=== PATIENT | female | born 1965 | race Caucasian/White ===

== ENCOUNTER 2016-05-12 12:42 | Emergency (ER) | payer MEDICAID ==
[2016-05-12] MEDS ORDERED: ADENOSINE 6 MG/2 ML VIAL ONE (12:45)
--- NOTE | 2016-05-12 12:50 | CPEKG ---
Heart Rate: 174 RR Interval: 345 QRSD Interval: 84 QT Interval: 260 QTC Interval: 443 P [place]: 0 QRS [place]: 84 T Wave [place]: -67 EKG Severity - ABNORMAL ECG - EKG Impression: SUPRAVENTRICULAR TACHYCARDIA EKG Impression: NONSPECIFIC T ABNORMALITIES, INFERIOR LEADS Electronically Signed By: Stacy Bey 12-May-2016 15:20:09
[2016-05-12] MEDS ORDERED: ADENOSINE 6 MG/2 ML VIAL IVP ONE (13:04)
[2016-05-12] MEDS ORDERED: NS 1,000 ML IV ONE (13:04)
[2016-05-12] MEDS ORDERED: LORazepam 2 MG/ML INJ IVP ONE (13:28)
[2016-05-12 13:35] LABS: % IMMATURE GRANULYOCYTES 0.2 % (0.0-1.1); ABSOLUTE IMMATURE GRANULOCYTES 0.01 10^3/uL (0.00-0.10); ADD DIFF? NO; ADD MORPH? NO; ADD SCAN? NO; ATYPICAL LYMPHOCYTE FLAG 10 (0-99); FRAGMENT RBC FLAG 20 (0-99); HEMOGLOBIN 14.9 g/dL (12.6-16.3); LEFT SHIFT FLG 0 (0-99); LIPEMIA HEMOLYSIS FLAG 90 (0-99); MEAN CELL HEMOGLOBIN 30.6 pg (27.9-34.1); MEAN CELL HEMOGLOBIN CONCENTR. 33.9 g/dL (32.4-36.7); MEAN CELL VOLUME 90.3 fL (81.5-99.8); MEAN PLATELET VOLUME 8.5 fL (8.7-11.7); PLATELET CLUMPS FLAG 0 (0-99); PLATELET COUNT 333 10^3/uL (150-400); RED BLOOD CELL COUNT 4.87 10^6/uL (4.18-5.33); RED CELL DISTRIBUTION WIDTH 13.2 % (11.5-15.2)
[2016-05-12 13:43] LABS: ANION GAP 14 mEq/L (8-16); CALCIUM 9.5 mg/dL (8.5-10.4); CARBON DIOXIDE 23 mEq/l (22-31); CHLORIDE 103 mEq/L (97-110); CREATININE 0.8 mg/dL (0.6-1.0); GLOMERULAR FILTRATION RATE > 60; GLUCOSE 108 mg/dL (70-100); INR 1.97 (0.83-1.16); POTASSIUM 4.1 mEq/L (3.5-5.2); PROTIME(PATIENT) 22.5 SEC (12.0-15.0); SODIUM 140 mEq/L (134-144)
[2016-05-12 13:44] LABS: APTT 34.7 SEC (23.0-38.0)
[2016-05-12 13:55] LABS: TROPONIN I < 0.012 ng/mL (0-0.034)
[2016-05-12 14:23] VITALS: RESP 16
--- NOTE | 2016-05-12 14:26 | EDPHY ---
H & P Stated Complaint: SVT Time Seen by Provider: 05/12/16 13:04 HPI/ROS: CHIEF COMPLAINT: Rapid heart rate HISTORY OF PRESENT ILLNESS: This is a 50-year-old female with a history of SVT status post ablation a few years ago who presents with SVT which began less than an hour prior to her presentation. She was sitting in a meeting at the time that this occurred. She has had intermittent episodes of SVT since her last ablation and is scheduled to meet with Dr. Moreno tomorrow. She has a repeat ablation scheduled at the end of this month. She is currently feeling short of breath and experiencing substernal chest pressure. She has a history of thromboembolic disease and is taking Coumadin. REVIEW OF SYSTEMS: A ten point review of systems was performed and is negative with the exception of the items mentioned in the HPI. Source: Patient Exam Limitations: No limitations - Personal History LMP (Females 10-55): Hysterectomy Current Tetanus/Diphtheria Vaccine: Yes Current Tetanus Diphtheria and Acellular Pertussis (TDAP): Yes Tetanus Vaccine Date: 2008 - Medical/Surgical History Hx Asthma: No Hx Chronic Respiratory Disease: No Hx Diabetes: No Hx Cardiac Disease: Yes Hx Renal Disease: No Hx Cirrhosis: No Hx Alcoholism: Yes Hx HIV/AIDS: No Hx Splenectomy or Spleen Trauma: No Other PMH: PE,DVT'S,HYPOTHYROIDISM, migraines, Hematolyic gene mutation, PTSD, etoh (sober since 2008), SVT. 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 - Physical Exam Exam: General Appearance: Alert. Vital signs reviewed. Blood pressure 150/91, heart rate 170s. Eyes: Pupils equal and round, no conjunctival injection, no discharge. Anicteric. ENT, Mouth: Mucous membranes are moist, no oropharyngeal erythema or edema. Neck: No lymphadenopathy, supple. No JVD. No carotid bruits. Respiratory: Lungs are clear to auscultation; no wheezes, rales, or rhonchi. Cardiovascular: Tachycardic; no murmur, rub, or gallop. Gastrointestinal: Soft and nontender, no masses or organomegaly, bowel sounds normal. Skin: Warm and dry, no rashes on exposed skin, normal color. Back: Nontender to palpation over the thoracolumbar spine. Extremities: No lower extremity edema, no calf tenderness or swelling. Neurological: Alert and oriented. Moving all four extremities easily and equally. Psychiatric: Anxious. Constitutional: Initial Vital Signs Temperature (C) 36.5 C 05/12/16 12:42 Heart Rate 185 H 05/12/16 12:42 Respiratory Rate 20 05/12/16 12:42 Blood Pressure 150/91 H 05/12/16 12:42 O2 Sat (%) 96 05/12/16 12:42 O2 Delivery Mode Room Air O2 (L/minute) 2 Allergies/Adverse Reactions: Shellfish *RETIRED-01/11/12 [Shellfish] Allergy (Unknown, Verified 08/31/14 10: 40) HEADACHE morphine [Morphine] Allergy (Verified 08/31/14 10:40) Itching ondansetron HCl [From Zofran] Allergy (Verified 08/31/14 10:40) bee sting Allergy (Uncoded 08/31/14 10:40) Unknown Home Medications: Medication Instructions Recorded Levothyroxine [Synthroid 88 mcg 88 mcg PO DAILY06 08/15/13 (*)] Warfarin Sodium [Coumadin 5MG (*)] 10 mg PO SUWE@0800 08/15/13 Zolpidem Tartrate [Ambien 5MG (*)] 10 mg PO HS PRN 08/15/13 Flexeril 02/15/16 Medical Decision Making - Diagnostics EKG Interpretation: 12 lead EKG is interpreted in Trace master View by emergency department physician. SVT with a rate in the 170s. 12 lead EKG is interpreted in Trace master View by emergency department physician. Normal sinus rhythm with a rate in 80s. ED Course/Re-evaluation: 50-year-old female with a history of SVT who presents with SVT in the 170s. She received adenosine 12 mg IV with decrease in her heart rate from the 170s to 110-120. While in the emergency department she converted to a sinus rhythm with a rate in the 80s. I have reviewed her labs including CBC, chemistries, troponin, INR, and TSH. Her INR is just under 2. I have spoken with Elle Sharma from [facility]. She was observed for over an hour after she converted to normal sinus rhythm. I feel that she can safely be discharged home to follow up tomorrow with Dr. Moreno as planned. Differential Diagnosis: DDX of tachycardia was considered including but not limited to SVT/primary rhythm disturbance, afib/flutter, dehydration, volume loss/bleeding, fever, thyroid disturbance. - Data Points Laboratory Results: Laboratory Results 05/12/16 12:52 05/12/16 12:52 Medications Given: Discontinued Medications Adenosine (Adenosine) 12 mg IVP EDNOW ONE Stop: 05/12/16 13:05 Last Admin: 05/12/16 12:59 Dose: 12 mg Sodium Chloride (Ns) 1,000 mls @ 0 mls/hr IV EDNOW ONE PRN Reason: Wide Open Stop: 05/12/16 13:05 Last Admin: 05/12/16 12:58 Dose: 1,000 mls Lorazepam (Ativan Injection) 1 mg IVP EDNOW ONE Stop: 05/12/16 13:29 Last Admin: 05/12/16 13:32 Dose: 1 mg Departure - Departure Disposition: Home, Routine, Self-Care Clinical Impression: Supraventricular tachycardia Condition: Good Instructions: Supraventricular Tachycardia (ED) Referrals: Adriana Sandoval PA [Primary Care Provider] - As per Instructions Erlin Moreno MD [Medical Doctor] - As per Instructions
--- NOTE | 2016-05-12 15:03 | CPEKG ---
Heart Rate: 85 RR Interval: 706 P-R Interval: 152 QRSD Interval: 90 QT Interval: 372 QTC Interval: 443 P [place]: 51 QRS [place]: 87 T Wave [place]: 40 EKG Severity - OTHERWISE NORMAL ECG - EKG Impression: SINUS RHYTHM EKG Impression: LOW VOLTAGE IN FRONTAL LEADS Electronically Signed By: Stacy Bey 12-May-2016 15:20:00
[2016-05-12 16:07] VITALS: BP 122/78; PULSE 89; TEMP 97.5; O2SAT 96
== END 2016-05-12 16:08 | disposition home or self-care (01) ==
DX: I47.1 Supraventricular tachycardia (principal); F17.200 Nicotine dependence, unspecified, uncomplicated; Z79.01 Long term (current) use of anticoagulants
CPT/HCPCS: 96374; J0153

== ENCOUNTER 2016-05-25 06:56 | Observation (INO) | payer MEDICAID ==
[2016-05-25] MEDS ORDERED: NS 1,000 ML IV ONE (07:01)
--- NOTE | 2016-05-25 07:34 | CPEKG ---
Heart Rate: 79 RR Interval: 759 P-R Interval: 156 QRSD Interval: 90 QT Interval: 424 QTC Interval: 487 P [place]: 67 QRS [place]: 79 T Wave [place]: 62 EKG Severity - BORDERLINE ECG - EKG Impression: SINUS RHYTHM EKG Impression: VENTRICULAR PREMATURE COMPLEX EKG Impression: BORDERLINE T ABNORMALITIES, ANT-LAT LEADS EKG Impression: BORDERLINE PROLONGED QT INTERVAL Electronically Signed By: Raj Christianson 25-May-2016 10:07:00
[2016-05-25 07:49] LABS: % IMMATURE GRANULYOCYTES 0.2 % (0.0-1.1); ABSOLUTE IMMATURE GRANULOCYTES 0.01 10^3/uL (0.00-0.10); ADD DIFF? NO; ADD MORPH? NO; ADD SCAN? NO; ATYPICAL LYMPHOCYTE FLAG 0 (0-99); FRAGMENT RBC FLAG 0 (0-99); HEMATOCRIT 37.6 % (38.0-47.0); LEFT SHIFT FLG 0 (0-99); LIPEMIA HEMOLYSIS FLAG 90 (0-99); MEAN CELL HEMOGLOBIN 31.7 pg (27.9-34.1); MEAN CELL HEMOGLOBIN CONCENTR. 34.6 g/dL (32.4-36.7); MEAN CELL VOLUME 91.7 fL (81.5-99.8); MEAN PLATELET VOLUME 8.7 fL (8.7-11.7); PLATELET CLUMPS FLAG 0 (0-99); PLATELET COUNT 215 10^3/uL (150-400); RED CELL DISTRIBUTION WIDTH 12.7 % (11.5-15.2)
[2016-05-25 07:57] LABS: INR 1.02 (0.83-1.16); PROTIME(PATIENT) 13.3 SEC (12.0-15.0)
[2016-05-25 08:13] LABS: ANION GAP 11 mEq/L (8-16); CALCIUM 9.1 mg/dL (8.5-10.4); CARBON DIOXIDE 24 mEq/l (22-31); CHLORIDE 108 mEq/L (97-110); CREATININE 0.7 mg/dL (0.6-1.0); GLOMERULAR FILTRATION RATE > 60; GLUCOSE 122 mg/dL (70-100); MAGNESIUM 1.9 mg/dL (1.6-2.3); SODIUM 143 mEq/L (134-144)
[2016-05-25] MEDS ORDERED: HEPARIN 10,000 UNIT/10 ML MDV ONE ×2 (08:19→09:57)
[2016-05-25] MEDS ORDERED: ISOPROTERENOL HCL 0.2 MG/ML 5ML AMP ONE (08:19)
[2016-05-25] MEDS ORDERED: LIDOCAINE 1% 30 ML SDV ONE (08:19)
[2016-05-25] MEDS ORDERED: BUPIVACAINE 0.5% 30 ML SDV ONE (08:20)
[2016-05-25] MEDS ORDERED: fentaNYL 100 MCG/2 ML INJ ONE ×3 (08:25→14:09)
[2016-05-25] MEDS ORDERED: SCOPOLAMINE HYDROBROMIDE 1.5 MG PATCH TD ONE (08:25)
[2016-05-25] MEDS ORDERED: PROPOFOL/EMULSION 500 MG/50 ML BOTTLE IV ONE ×4 (08:26→11:03)
[2016-05-25] MEDS ORDERED: PROPOFOL 200 MG/20 ML VIAL ONE (08:26)
[2016-05-25] MEDS ORDERED: MIDAZOLAM 2 MG/2 ML VIAL ONE (08:31)
[2016-05-25] MEDS ORDERED: DEXAMETHASONE 4 MG/ML VIAL ONE (08:41)
[2016-05-25] MEDS ORDERED: ONDANSETRON 4 MG/2 ML VIAL ONE (08:41)
[2016-05-25] MEDS ORDERED: ROCURONIUM 50 MG/5 ML VIAL ONE ×3 (08:41→10:45)
[2016-05-25] MEDS ORDERED: SUGAMMADEX SODIUM 200 MG/2 ML VIAL IVP ONE (10:01)
[2016-05-25] MEDS ORDERED: PHENYLEPHRINE HCL 100 MCG/ML SYR ONE (10:34)
[2016-05-25 11:58] LABS: HEMATOCRIT 33.5 % (38.0-47.0); HEMOGLOBIN 11.2 g/dL (12.6-16.3); PCO2 VENOUS 48 mmHg (40-44); PH VENOUS BLOOD 7.29 (7.31-7.42); PO2 VENOUS 51 mmHg (35-40); TCO2 VENOUS 24 mEq/L (23-27); VEN MEASURED OXYGEN SATURATION 80 % (65-75)
[2016-05-25 12:15] LABS: ANION GAP 7 mEq/L (8-16); CARBON DIOXIDE 24 mEq/l (22-31); CHLORIDE 111 mEq/L (97-110); CREATININE 0.7 mg/dL (0.6-1.0); GLOMERULAR FILTRATION RATE > 60; GLUCOSE 158 mg/dL (70-100); POTASSIUM 4.3 mEq/L (3.5-5.2); SODIUM 142 mEq/L (134-144)
[2016-05-25] MEDS ORDERED: ACETAMINOPHEN 325 MG TAB PO PRN (12:29)
[2016-05-25] MEDS ORDERED: ZOLPIDEM TARTRATE 5 MG TAB PO PRN (12:31)
[2016-05-25] MEDS ORDERED: IBUPROFEN 200 MG TAB PO PRN (12:31)
[2016-05-25] MEDS ORDERED: CYCLOBENZAPRINE 10 MG TAB PO PRN (12:31)
[2016-05-25 12:42] LABS: CALCIUM 7.8 mg/dL (8.5-10.4)
[2016-05-25 13:11] LABS: ANION GAP 6 mEq/L (8-16); CARBON DIOXIDE 24 mEq/l (22-31); CHLORIDE 111 mEq/L (97-110); CREATININE 0.8 mg/dL (0.6-1.0); GLOMERULAR FILTRATION RATE > 60; GLUCOSE 169 mg/dL (70-100); MAGNESIUM 1.7 mg/dL (1.6-2.3); POTASSIUM 4.4 mEq/L (3.5-5.2); SODIUM 141 mEq/L (134-144)
--- NOTE | 2016-05-25 13:17 | EPPROC ---
Electrophysiology Procedure Note: ELECTROPHYSIOLOGIC STUDY AND CATHETER MEDIATED ABLATION OF SLOW/FAST AV GABINO REENTRY TACHYCARDIA AND ATRIAL FLUTTER PROCEDURES PERFORMED: 65627-13 EP evaluation with RA/RV/LA pace/record, with arrhythmia induction 25790-95 EP evaluation with RA/RV pace record, insert/reposition catheter, with arrhythmia induction 67541 Intracardiac catheter ablation, SVT arrhythmogenic focus Second arrhythmia 49405 3D mapping Fluoroscopy INDICATION: Prior ablation for SVT and atrial flutter at our institution Recurrent SVT requiring adenosine PROCEDURE: Catheters & Anesthesia: The patient arrived in the Electrophysiology Laboratory in the fasting state. The right clavicular region, right groin, and left groin area were prepped and draped in the usual sterile manner. Anesthesiologist administered general anesthesia. Appropriate non-invasive blood pressure, pulse oximetry and end- tidal CO2 monitoring was established. All catheters were placed percutaneously using the modified Seldinger technique , and advanced into position under fluoroscopic guidance. One Halo catheter was placed along tricuspid annulus. One #7 Lithuanian deflectable octapolar electrode catheter was advanced to the His-bundle position via the left femoral vein (2mm spacing). One #7 Lithuanian deflectable catheter with 10 pairs of electrodes was placed via the right femoral vein into the coronary sinus. Heparin was given to keep ACT > 250 s. There was return of conduction across the CT isthmus. SL2 sheath and irrigated RF ablation catheter with 3D mapping capability ([employer] ) was placed in the right atrium. Ablation at the RA-IVC junction achieved conduction block across CT isthmus. Programmed stimulation was performed from the right atrium, right ventricle and coronary sinus (left atrium). Parahisian pacing demonstrated constant H-A interval with changing V-A intervals and stimulus-A intervals during capture and loss of capture of proximal RBB proving retrograde conduction over AV node. AVNRT was induced easily during infusion of isoproterenol 1 mcg/min. Ventricular extrastimuli delivered during tachycardia without altering antegrade His bundle activation did not advance next atrial potential, indicating that the tachycardia was not utilizing an accessory pathway for retrograde conduction. VA interval was 0 ms. SVT started with long AH interval A SL2 sheath was used. We placed 6 mm cryo catheter into the RA to ablate the slow AV gabino pathway but due to technical difficulties with the cryo console we had to change this back to 3.5 mm irrigated tip catheter. RF applications were delivered to the region between the tricuspid annulus and the coronary sinus ostium, at the level of the upper edge of the coronary sinus ostium. Radiofrequency applications were also delivered along the roof of the proximal coronary sinus. Junctional rhythm occurred during the last 3 of the RF applications. Echocardiogram was done during case due to hypotension, there was no pericardial effusion and wall motion of LV was normal. Hypotension resolved with decreasing propofol dose. Programmed stimulation was continued post ablation at baseline and during graded doses of isoproterenol upto 4mcg/min. Sustained AVNRT was not inducible. There were single echo beats. The catheters were removed. The long sheath was changed to a short 9 Fr sheath. The patient was transferred to the cardiovascular holding area in stable condition. Vascular access sheaths were removed in the holding area. There were no apparent complications. Results: A. Spontaneous Intervals: Pre ablation SCL 730 ms AH 55 ms 50 ms Post ablation SCL 650 ms AH 50 ms HV 50 ms B. Antegrade AV gabino function (decremental pacing) Pre ablation FPERP 470 ms SPERP 450 ms WBB CL 440 ms (AH jump from 150 ms to 280 ms at FPERP) Post ablation FPERP 470 ms WBB 460 ms C. Retrograde AV gabino function (decremental pacing) Pre ablation FPERP 360 ms WBB CL 350 ms D. Arrhythmias: Sustained slow/fast AVNRT CONCLUSIONS 1. AV gabino reentrant tachycardia using the slow AV gabino pathway for antegrade conduction and the fast AV gabino pathway for retrograde conduction. ( Slow/fast AVNRT). 2. Successful ablation of the slow AV gabino pathway with elimination of 1:1 antegrade conduction over the slow AV gabino pathway, all retrograde conduction over the slow AV gabino pathway and the inducibility of AVNRT. 3. Bidirectional block across cavotricuspid isthmus achieved by ablating at IVC-RA junction of CT isthmus. 4. No complications. Patient Problems: Problems Problem Status Diagnosed Hypoxemia Acute Supraventricular tachycardia Acute
[2016-05-25] MEDS ORDERED: fentaNYL 100 MCG/2 ML INJ IVP PRN (14:21)
[2016-05-25] MEDS ORDERED: LORazepam 2 MG/ML INJ IVP PRN (17:44)
[2016-05-25] MEDS ORDERED: PROMETHAZINE HCL 25 MG/ML INJ IVP PRN (17:45)
[2016-05-25] MEDS: OXYCODONE/APAP 5/325 TAB PO PRN (18:11)
[2016-05-25] MEDS: ENOXAPARIN 80 MG/0.8 ML SYR SC SCH (19:52)
[2016-05-26] MEDS: OXYCODONE/APAP 5/325 TAB PO PRN ×2 (03:52→12:13)
[2016-05-26] MEDS ORDERED: LEVOTHYROXINE 50 MCG TAB PO SCH (06:00)
[2016-05-26 06:17] LABS: % IMMATURE GRANULYOCYTES 0.3 % (0.0-1.1); ABSOLUTE IMMATURE GRANULOCYTES 0.02 10^3/uL (0.00-0.10); ADD DIFF? NO; ADD MORPH? NO; ADD SCAN? NO; ATYPICAL LYMPHOCYTE FLAG 10 (0-99); FRAGMENT RBC FLAG 0 (0-99); HEMATOCRIT 34.4 % (38.0-47.0); HEMOGLOBIN 11.7 g/dL (12.6-16.3); LEFT SHIFT FLG 0 (0-99); LIPEMIA HEMOLYSIS FLAG 90 (0-99); MEAN CELL HEMOGLOBIN 31.4 pg (27.9-34.1); MEAN CELL VOLUME 92.2 fL (81.5-99.8); MEAN PLATELET VOLUME 8.9 fL (8.7-11.7); PLATELET CLUMPS FLAG 20 (0-99); PLATELET COUNT 179 10^3/uL (150-400); RED BLOOD CELL COUNT 3.73 10^6/uL (4.18-5.33); RED CELL DISTRIBUTION WIDTH 12.9 % (11.5-15.2)
[2016-05-26 06:53] LABS: ANION GAP 8 mEq/L (8-16); CARBON DIOXIDE 25 mEq/l (22-31); CHLORIDE 108 mEq/L (97-110); CREATININE 0.7 mg/dL (0.6-1.0); GLOMERULAR FILTRATION RATE > 60; GLUCOSE 91 mg/dL (70-100); POTASSIUM 4.2 mEq/L (3.5-5.2); SODIUM 141 mEq/L (134-144)
[2016-05-26 07:05] LABS: CREATINE KINASE-MB FRACTION 1.23 ng/mL (0-3.19); TROPONIN I 0.112 ng/mL (0-0.034)
[2016-05-26] MEDS: ENOXAPARIN 80 MG/0.8 ML SYR SC SCH (08:33)
--- NOTE | 2016-05-26 08:56 | CPEKG ---
Heart Rate: 69 RR Interval: 870 P-R Interval: 136 QRSD Interval: 90 QT Interval: 400 QTC Interval: 429 P [place]: 46 QRS [place]: 79 T Wave [place]: 31 EKG Severity - BORDERLINE ECG - EKG Impression: SINUS RHYTHM EKG Impression: LOW VOLTAGE THROUGHOUT Electronically Signed By: Carlitos Fernandes 27-May-2016 08:26:13
[2016-05-26] MEDS ORDERED: WARFARIN SODIUM 5 MG TAB PO SCH (09:00)
[2016-05-26] MEDS ORDERED: METOPROLOL SUCCINATE XR 25 MG TAB PO SCH (09:00)
[2016-05-26] MEDS ORDERED: ASPIRIN 81 MG CHEWABLE TAB PO SCH (09:00)
[2016-05-26] MEDS ORDERED: KETOROLAC 15 MG/1 ML SDV IVP ONE ×2 (09:29→11:00)
--- NOTE | 2016-05-26 10:24 | ECHO ---
[id number] + + [address] : : [place] [address] : : [phone] + + Adult Echocardiographic Report + -----+ :Name: JOVANNI العراقي Date: 05/26/2016 07:57 AM BP: 95/66 mmHg : : Hospital Admission Number: [id number] Location : 206: :: 1965 Gender: Female Height: 66 in : :Age: 50 yrs Race: WH,White Weight: 171 lb : :Reason For Study: F/U EP study : : BSA: 1.9 meters2 : :History: F/U EP study : + -----+ MMode/2D Measurements & Calculations IVSd: 0.60 cm RVDd: 2.4 cm FS: 27.9 % Ao root diam: LVPWd: 0.77 cm LVIDd: 4.4 cm EDV(Teich): 3.0 cm LVIDs: 3.2 cm 89.3 ml ESV(Teich): 40.9 ml EF(Teich): 54.2 % LVLd ap4: 8.6 cm SV(MOD-sp4): EDV(MOD-sp4): 76.0 ml 104.0 ml LVLs ap4: 6.1 cm ESV(MOD-sp4): 28.0 ml EF(MOD-sp4): 73.1 % Normal Measurement Values: + + :LVIDd (3.5-5.7cm) IVSd (0.6-1.1cm) LVPWd (0.6-1.1cm) Aortic Root (2.0-3.7cm)Left Atrium (1.5-4.0cm): :LV Vol(d) (76-115ml) LV Vol(s) (29-48ml) Ejec Fraction (50-65%)PV Nathanael (0.6- 1.2m/s) TV Nathanael (0.4-1.0m/s) : :MV E Nathanael (0.8-1.0m/s)MV A Nathanael (0.3-1.0m/s)LVOT Nathanael (0.7-1.2m/s) Asc Ao Nathanael ( 0.9-1.8m/s) : + + Doppler Measurements & Calculations MV E max nathanael: Ao V2 max: LV V1 max: PA V2 max: 90.8 cm/sec 117.1 cm/sec 81.4 cm/sec 82.8 cm/sec MV A max nathanael: Ao max P.5 mmHgLV V1 max PG: PA max P.3 cm/sec 2.6 mmHg 2.7 mmHg MV E/A: 1.6 MV dec time: 0.19 sec TR max nathanael: 226.7 cm/sec TR max P.6 mmHg RAP systole: 10.0 mmHg RVSP(TR): 30.6 mmHg Left Ventricle The left ventricle is normal in size and function. There is normal left ventricular wall thickness. Ejection Fraction = 65%. No regional wall motion abnormalities noted. Right Ventricle The right ventricle is normal in size and function. Atria The left atrial size is normal. Right atrial size is normal. There was no clot seen in the IVC. A dilated inferior vena cava suggests increased right atrial pressure. Mitral Valve The mitral valve is normal in structure and function. There is no mitral valve stenosis. There is trace to mild mitral regurgitation. Tricuspid Valve The tricuspid valve is normal in structure and function. There is no tricuspid stenosis. There is trace to mild tricuspid regurgitation. Right ventricular systolic pressure is 31mmHg. Aortic Valve The aortic valve is trileaflet. There is no aortic stenosis. There is no aortic insufficiency. Pulmonic Valve The pulmonic valve is not well visualized. Great Vessels The aortic root is normal size. Pericardium/Pleural trivial pericardial effusion. Conclusion A two-dimensional transthoracic echocardiogram with M-mode and Doppler was performed. The left ventricle is normal in size and function. Ejection Fraction = 65%. There was no clot seen in the IVC. There is trace to mild mitral regurgitation. There is trace to mild tricuspid regurgitation. Right ventricular systolic pressure is 31mmHg. trivial pericardial effusion. Final Reading Physician: Erlin Moreno MD electronically signed on 05/26/2016 10:22 AM Ordering Physician: Erlin Moreno Performed By: Geri Sharif
[2016-05-26] MEDS ORDERED: PNEUMOCOCCAL 0.5ML VACCINE VIAL IM ONE (10:56)
[2016-05-26 11:44] VITALS: BP 111/62; PULSE 73; RESP 15; TEMP 98.8; O2SAT 91
--- NOTE | 2016-05-27 00:26 | GDS ---
[f rep st] DISCHARGE SUMMARY ADMISSION DIAGNOSES: 1. Supraventricular tachycardia and near syncope. 2. 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 3. Hypothyroidism. 4. History of pulmonary embolism. 5. Thromboembolic disease. 6. Previous alcohol use. DISCHARGE DIAGNOSES: 1. Supraventricular tachycardia status post re-do electrophysiology study with successful ablation o f slow atrioventricular stephanie pathway for to eliminate atrioventricular stephanie reentrant tachycardia. 2. History of atrial flutter status post ablation. 3. History of pulmonary embolisms. 4. Thromboembolic disease. 5. Previous alcohol abuse. PROCEDURES DONE DURING HOSPITALIZATION: 1. Electrocardiogram. 2. Electrophysiology study. 3. Successful ablation of slow AV stephanie pathway, which eliminated one-to-one antegrade conduction ov er the slow AV stephanie pathway, which eliminated AVNRT. 4. Echocardiogram. BRIEF HISTORY: Please see H and P. The patient is a 50-year-old female with significant history of previous AVNRT and atrial flutter ablation in 2013, hypothyroidism, history of pulmonary embolisms an d thrombotic disease on chronic warfarin therapy, with previous alcohol abuse. She initially was see n in March, when status post an episode of dizziness and lightheadedness, she went to the emergenc y department, found to be in a supraventricular tachycardia, requiring multiple doses of adenosine to convert her back. At that time, she had been started on beta-luis, with the idea of a trial of m edication therapy. She had been doing fairly well until the beginning of May, when she experienc ed another episode of SVT with rates up to 174 BPM, requiring again adenosine to convert her, despite being on beta luis. At that time, it was decided by Dr. Moreno and the patient that she should unde rgo another EP procedure. After discussing the risks and benefits, patient agreed. HOSPITAL COURSE: Patient was admitted to the hospital, to the [facility]. There she was prep for procedure and taken to the electrophysiology lab, where EP procedure was performed, followed by AVNRT ablation , no complications. She was transferred back to the CVC and ultimately to PCU for overnight observat ion. There she remained in sinus rhythm. She did report some mild substernal chest pressure post ab lation, which improved with narcotics, and was given 2 doses of Toradol, reporting symptoms mostly donohue d subsided. She had no bleeding issues throughout the night. She has been up in walking the unit wi thout any difficulties. Denies of any shortness of breath, palpitations, near-syncope or syncopal ev ents. PHYSICAL EXAMINATION: Today, GENERAL APPEARANCE: Medium build, well-groomed, female. She is alert and orientated to person, place, time, and situation. Appears to be under no acute distres s. VITAL SIGNS: Currently are blood pressure 111/62. Heart rate is 73, sinus rhythm on the monitor . Respirations 15, saturating 92% on room air. Temperature 37.1 degrees Celsius. HEENT: Head is n ormocephalic. Lips and tongue are pink and moist with no signs of cyanosis. Conjunctivae pink. NEC K: Trachea is midline. +2 carotid pulses bilateral, no auscultated bruits, no jugular vein distenti on. RESPIRATORY: Lungs clear to auscultation. No rhonchi, rales, or wheezes. No accessory muscle use. No intercostal muscle retraction noted. CARDIAC: Regular rate, regular rhythm, S1, S2. No S3 , rub, gallop, or murmur noted. ABDOMEN: Soft, nontender. Bowel sounds x4 quadrants. No organomeg eloy. No palpable masses. SKIN: [place], warm, dry, no cyanosis, no clubbing, no peripheral edema. VA SCULAR: +2 radials bilateral, +2 carotids bilateral, +1 dorsal pedal and posterior tibial pulses emily ateral. GROIN SITE: Catheter insertion sites, bilateral. No redness, swelling, drainage, ecchymosis, or hem atoma noted. No auscultated bruit over either site. NEURO: Cranial nerves 2 through 12 grossly int act. LABORATORY STUDIES: Showed WBC 7.47, hemoglobin 11.7, hematocrit of 34.4, platelet count 179. Sodiu m 141, potassium 4.2, chloride 108, CO2 25, BUN 16, creatinine 0.7, glucose 91, calcium 9.0, noted po stoperatively magnesium was 1.0. This morning laboratories for cardiac enzymes showed CK of 89, CK-M B of 1.23, troponin of 0.112, which was expected to be elevated post cardiac ablation. Electrophysiology study with ablation as mentioned above. Morning echocardiogram showed LV normal si ze and function with EF of 65%, no clot in the IVC, trace to mild MR, trace to mild TR, RVSP was tesfaye mated at 31 mmHg, trivial pericardial effusion. A.m. electrocardiogram shows sinus rhythm, normal axis. DISCHARGE DISPOSITION: Patient will be discharged home in fair condition. She is under activity res trictions of not lifting more than 10 pounds for the next week and no strenuous activity for the next 2 weeks. DISCHARGE MEDICATIONS: Please see discharge med reconciliation sheet. Note patient is on chronic wa rfarin therapy due to her history of thrombotic events and pulmonary embolisms. She had been bridge prior to this procedure after she came off warfarin, she has been reinstituted on warfarin last night , and will be bridged with Lovenox 80 mg subcu every 12 hours. Would like her to have a repeat INR d one on of this week, depending on the results, if she is therapeutic, will discontinue Loven ox and continue on home dose of warfarin. Patient also reporting mild midsternal chest pressure, whi ch resolved with Toradol, potentially this is mild pericarditis due to recent ablation, would like he r to continue on nonsteroidal anti-inflammatories, she will be on ibuprofen 400 mg every 8 hours for the next 3 days. Due to this and being on warfarin, we will also ask her to take Prilosec 20 mg p.o. daily for the next 1-2 weeks. DISCHARGE INSTRUCTIONS: Post ablation discharge instructions gone over with the patient including ac tivity restrictions, medication compliance, monitoring for signs of infection, and bleeding precautio ns at the time. We also discussed her bridging therapy. She is in full agreement and understands th at she is to have an INR drawn on . She will continue Lovenox every 12 hours, and continue o n her home dose of warfarin. All potential side effects of medication, and patient also agrees, unde rstands taking ibuprofen every 8 hours, and the Prilosec. At the time of discharge, patient verbaliz es understanding all discharge instructions. She has been told that if she has any problems or ty rns post discharge, she is to call our office or return to the hospital immediately. Patient has a ganesh swartz appointment in 1 months' time, sooner if necessary. Total time spent on discharge, greater t garcia 30 minutes. /[id number]/MODL
== END 2016-05-26 13:30 | disposition home or self-care (01) ==
LOC: FCATH 06:56 → F2W 12:29
PROVIDERS: ADMIT Internal Medicine Cardiovascular Disease; ATTEND Internal Medicine Cardiovascular Disease
PROC: 02563ZZ Destruction of Right Atrium, Percutaneous Approach (ICD-10-PCS; principal; 2016-05-25)
DX: I47.1 Supraventricular tachycardia (principal); E03.9 Hypothyroidism, unspecified; Z86.711 Personal history of pulmonary embolism
CPT/HCPCS: 90471; 93005; 93306; 93613; 93621; 93623; 93653; 93655; C1731; C1732; C1733; C1893; G0009; J0171; J1100; J1644; J1650; J1885; J2250; J2370; J2405; J2550; J2704; J3010

== ENCOUNTER 2016-05-31 12:17 | Emergency (ER) | payer MEDICAID ==
--- NOTE | 2016-05-31 12:52 | CPEKG ---
Heart Rate: 63 RR Interval: 952 P-R Interval: 152 QRSD Interval: 90 QT Interval: 408 QTC Interval: 418 P [place]: -15 QRS [place]: 76 T Wave [place]: 20 EKG Severity - OTHERWISE NORMAL ECG - EKG Impression: SINUS RHYTHM EKG Impression: LOW VOLTAGE IN FRONTAL LEADS Electronically Signed By: Martir Donato 31-May-2016 15:04:56
--- NOTE | 2016-05-31 13:12 | EDPHY ---
H & P Stated Complaint: c/o headache x 4-5 days;on blood thinners - Personal History LMP (Females 10-55): Post Menopausal Current Tetanus Diphtheria and Acellular Pertussis (TDAP): Yes Tetanus Vaccine Date: 2008 - Medical/Surgical History Hx Asthma: No Hx Chronic Respiratory Disease: No Hx Diabetes: No Hx Cardiac Disease: Yes Hx Renal Disease: No Hx Cirrhosis: No Hx Alcoholism: Yes Hx HIV/AIDS: No Hx Splenectomy or Spleen Trauma: No Other PMH: PE,DVT'S,HYPOTHYROIDISM, migraines, Hematolyic gene mutation, PTSD, etoh (sober since 2008), SVT. SURG: Hysterectomy, spinal fusion c4-6, right toe surgery, breast biopsy, tubal ligation, ablation for SVT - Social History Smoking Status: Current every day smoker Time Seen by Provider: 05/31/16 12:46 Constitutional: Initial Vital Signs Temperature (C) 36.7 C 05/31/16 12:19 Heart Rate 69 05/31/16 12:19 Respiratory Rate 18 05/31/16 12:19 Blood Pressure 121/78 H 05/31/16 12:19 O2 Sat (%) 95 05/31/16 12:19 O2 Delivery Mode Room Air Allergies/Adverse Reactions: Shellfish *RETIRED-01/11/12 [Shellfish] Allergy (Unknown, Verified 05/31/16 12: 18) HEADACHE morphine [Morphine] Allergy (Verified 05/31/16 12:18) Itching ondansetron HCl [From Zofran] Allergy (Verified 05/31/16 12:18) bee sting Allergy (Uncoded 08/31/14 10:40) Unknown Home Medications: Medication Instructions Recorded Warfarin Sodium [Coumadin 5MG (*)] 10 mg PO DAILY 08/15/13 Zolpidem Tartrate [Ambien 5MG (*)] 10 mg PO HS PRN 08/15/13 Enoxaparin [Lovenox 80 MG (*)] 80 mg SQ BID 05/25/16 Levothyroxine [Synthroid 50 mcg 50 mcg PO DAILY06 05/25/16 (*)] Metoprolol Succinate Xr [Toprol Xl 25 mg PO DAILY 05/25/16 25 mg (*)] Acetaminophen [Tylenol 325mg (*)] 325 - 650 mg PO Q4HRS PRN #0 tab 05/26/16 Aspirin [Aspirin 81mg (*)] 81 mg PO DAILY #0 tab.chew 05/26/16 Ibuprofen 400 mg PO Q8HRS #9 tablet 05/26/16 Omeprazole Magnesium [Prilosec Otc] 20 mg PO DAILY #0 tablet.dr 05/26/16 Apixaban [Eliquis] 2.5 mg PO BID #60 tablet 05/31/16 Meloxicam [Mobic 7.5 mg] 7.5 mg PO 05/31/16 Metoclopramide [Reglan 10 mg tab 10 mg PO BID PRN #10 tab 05/31/16 (RX)] Medical Decision Making ED Course/Re-evaluation: CHIEF COMPLAINT: Headache, recent ablation HISTORY OF PRESENT ILLNESS: The patient is an anticoagulated 50 y/o female, with a history of SVT status post-ablation, complaining of a frontal "pounding" headache since night, 4 days ago. Her most recent INR was subtherapeutic and she has been increasing her Coumadin dose over the last few days in addition to her Lovenox. Her headache is not alleviated by ibuprofen. It does not feel similar to previous migraines, which usually have visual symptoms and vomiting. REVIEW OF SYSTEMS: A 10 point review of systems was performed and is negative with the exception of the elements mentioned in the history of present illness. PHYSICAL EXAM: General Appearance: Alert, well hydrated, appropriate, and non-toxic appearing. Head: Atraumatic without scalp tenderness or obvious injury Eyes: Pupils equal, round, reactive to light and accommodation, EOMI, no trauma , no injection. Ears: Clear bilaterally, no perforation, normal landmarks Nose: Atraumatic, no rhinorrhea, clear. Throat: There is no erythema or exudates, no lesions, normal tonsils, mucus membranes moist. Neck: Supple, 2+ carotid upstroke, non-tender, no lymphadenopathy. Respiratory: No retractions, no distress, no wheezes, and no accessory muscle use. Lungs are clear to auscultation bilaterally. Cardiovascular: Regular rate and rhythm, no murmurs, rubs, or gallops. Bilateral carotid, radial, dorsalis pedis, and posterior tibial pulses intact. Good capillary refill all extremities. Gastrointestinal: Abdomen is soft, non-tender, non-distended, no masses, no rebound, no guarding, no peritoneal signs. Musculoskeletal: Normal active ROM of all extremities, atraumatic. Neurological: Alert, appropriate, and interactive. The patient has normal DTRs and non-focal cranial nerves, motor, sensory, and cerebellar exam. Skin: No rashes, good turgor, no nodules on palpation. 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 Moreno DIAGNOSTICS/PROCEDURES/CRITICAL CARE TIME: Study: CT of the Head Indication: Headache Results: CT scan of the head was obtained. The results of the study are . The study was read by the radiologist, . I viewed the images myself on the PACS system. DIFFERENTIAL DIAGNOSIS: The differential diagnosis for the patient's headache included but was not limited to subarachnoid hemorrhage, migraine headache, tension headache and infectious causes such as meningitis, pharyngitis and sinusitis. MEDICAL DECISION MAKING: This is a 50 y/o female, with a history of genetic clotting disorder and recent ablation for SVT, presenting with a 4-day history of a frontal headache, dissimilar to previous migraines. Exam is unremarkable. Plan for head CT to rule out acute process. The patient reports she is out of Lovenox injection sites after 30 injections and is still not therapeutic on her Coumadin. We will discontinue her Lovenox and Coumadin and place her on an oral factor Xa inhibitor. She will be discharged with script for 2.5mg BID Eliquis for clot prophylaxis. She understands she needs to follow up with her PCP to establish fpc use of this medication. Specific return precautions given. She is comfortable with this plan. (Martir Donato) Other Provider: I assumed patient care from Dr. Martir Donato pending MRI. I received MRI report from Radiology. I discussed it with Dr. John Sharma from Neurology and he review the images. 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 It is okay for her to continue taking blood thinners. I discussed these things with the patient and will refer her to Neurosurgery. She understands and agrees. her headache is resolved. ( Emeterio Castellano) - Data Points Laboratory Results: Laboratory Results 05/31/16 12:30 05/31/16 12:30 05/31/16 12:30 WBC 5.87 10^3/uL (3.80-9.50) RBC 4.60 10^6/uL (4.18-5.33) Hgb 14.4 g/dL (12.6-16.3) Hct 42.9 % (38.0-47.0) MCV 93.3 fL (81.5-99.8) MCH 31.3 pg (27.9-34.1) MCHC 33.6 g/dL (32.4-36.7) RDW 12.7 % (11.5-15.2) Plt Count 253 10^3/uL (150-400) MPV 8.8 fL (8.7-11.7) Neut % (Auto) 52.9 % (39.3-74.2) Lymph % (Auto) 36.1 % (15.0-45.0) [place] % (Auto) 7.2 % (4.5-13.0) Eos % (Auto) 3.1 % (0.6-7.6) Baso % (Auto) 0.5 % (0.3-1.7) Nucleat RBC Rel Count 0.0 % (0.0-0.2) Absolute Neuts (auto) 3.11 10^3/uL (1.70-6.50) Absolute Lymphs (auto) 2.12 10^3/uL (1.00-3.00) Absolute Monos (auto) 0.42 10^3/uL (0.30-0.80) Absolute Eos (auto) 0.18 10^3/uL (0.03-0.40) Absolute Basos (auto) 0.03 10^3/uL (0.02-0.10) Absolute Nucleated RBC 0.00 10^3/uL (0-0.01) Immature Gran % 0.2 % (0.0-1.1) Immature Gran # 0.01 10^3/uL (0.00-0.10) PT 23.5 H SEC (12.0-15.0) INR 2.08 H (0.83-1.16) APTT 38.6 H SEC (23.0-38.0) Sodium 140 mEq/L (134-144) Potassium 4.4 mEq/L (3.5-5.2) Chloride 108 mEq/L (97-110) Carbon Dioxide 25 mEq/l (22-31) Anion Gap 7 mEq/L (8-16) BUN 15 mg/dL (7-23) Creatinine 0.7 mg/dL (0.6-1.0) Estimated GFR > 60 Glucose 98 mg/dL (70-100) Calcium 9.5 mg/dL (8.5-10.4) Medications Given: Discontinued Medications Dexamethasone (Decadron Injection) 10 mg IVP EDNOW ONE Stop: 05/31/16 13:19 Last Admin: 05/31/16 13:42 Dose: 10 mg Metoclopramide HCl (Reglan Injection) 10 mg IVP EDNOW ONE Stop: 05/31/16 13:19 Last Admin: 05/31/16 13:42 Dose: 10 mg Departure - Departure Disposition: Home, Routine, Self-Care Clinical Impression: Headache Qualifiers: Headache type: unspecified Headache chronicity pattern: acute headache Intractability: not intractable Qualifier Code: (R51) Headache Condition: Good Instructions: Acute Headache (ED) Additional Instructions: 1. Discontinue your Lovenox and Coumadin. Take 2.5mg Eliquis twice daily. Follow up with your primary care provider this week to discuss switching onto this medication snf. 2. Return to the ED for any worsening of condition. Referrals: Adriana Sandoval PA [Primary Care Provider] - As per Instructions Adrian Coombs MD [Medical Doctor] - As per Instructions Prescriptions: Apixaban [Eliquis] 2.5 mg PO BID #60 tablet Metoclopramide [Reglan 10 mg tab (RX)] 10 mg PO BID PRN #10 tab PRN Reason: Headache Report Scribed for: Martir Donato Report Scribed by: Kim Ibrahim Date of Report: 05/31/16 Time of Report: 12:52
[2016-05-31] MEDS ORDERED: METOCLOPRAMIDE 10 MG/2 ML VIAL IVP ONE (13:18)
[2016-05-31] MEDS ORDERED: DEXAMETHASONE 10 MG/ML VIAL IVP ONE (13:18)
[2016-05-31 13:19] LABS: % IMMATURE GRANULYOCYTES 0.2 % (0.0-1.1); ABSOLUTE IMMATURE GRANULOCYTES 0.01 10^3/uL (0.00-0.10); ADD DIFF? NO; ADD MORPH? NO; ADD SCAN? NO; ATYPICAL LYMPHOCYTE FLAG 0 (0-99); FRAGMENT RBC FLAG 0 (0-99); HEMATOCRIT 42.9 % (38.0-47.0); HEMOGLOBIN 14.4 g/dL (12.6-16.3); LEFT SHIFT FLG 0 (0-99); LIPEMIA HEMOLYSIS FLAG 80 (0-99); MEAN CELL HEMOGLOBIN 31.3 pg (27.9-34.1); MEAN CELL HEMOGLOBIN CONCENTR. 33.6 g/dL (32.4-36.7); MEAN CELL VOLUME 93.3 fL (81.5-99.8); MEAN PLATELET VOLUME 8.8 fL (8.7-11.7); PLATELET CLUMPS FLAG 0 (0-99); PLATELET COUNT 253 10^3/uL (150-400); RED CELL DISTRIBUTION WIDTH 12.7 % (11.5-15.2)
[2016-05-31 13:23] LABS: ANION GAP 7 mEq/L (8-16); CALCIUM 9.5 mg/dL (8.5-10.4); CARBON DIOXIDE 25 mEq/l (22-31); CHLORIDE 108 mEq/L (97-110); CREATININE 0.7 mg/dL (0.6-1.0); GLOMERULAR FILTRATION RATE > 60; GLUCOSE 98 mg/dL (70-100); POTASSIUM 4.4 mEq/L (3.5-5.2); SODIUM 140 mEq/L (134-144)
[2016-05-31 14:05] LABS: INR 2.08 (0.83-1.16); PROTIME(PATIENT) 23.5 SEC (12.0-15.0)
[2016-05-31 14:06] LABS: APTT 38.6 SEC (23.0-38.0)
[2016-05-31 14:57] VITALS: RESP 16
--- NOTE | 2016-05-31 15:57 | CT ---
CT Head Without Contrast History: Altered mental status. Frontal headache. Comparison: August 2014. Technique: Standard noncontrast head CT protocol utilizing axial images acquired through the calvari um. Images were reconstructed down to 1.25-mm slice thickness as well. Radiation dose technique was u tilized. Findings: There is a 17 mm hypodense lesion anteriorly in the right temporal lobe, new from 2015. No evidence for mass effect. No other findings for intracranial hemorrhage, infarct, or mass. The ventri cles, sulci, and cisterns are within normal limits for the patient's age. No evidence for an extraaxi al fluid collection. No evidence for a skull fracture. No evidence for an air-fluid level in the para nasal sinuses. Impression: There is a 17 mm nonspecific hypodense lesion anterior right temporal lobe. Recommend MRI without and with contrast for further evaluation. Results relayed to Dr. Martir Donato.
[2016-05-31] MEDS ORDERED: GADOBUTROL 10 ML VIAL IVP ONE (16:21)
--- NOTE | 2016-05-31 17:20 | MR ---
MRI Brain Without and With Contrast History: New right temporal lesion seen on CT. Headache. Comparison: CTs from May 2016 and August 2014. Technique: MRI is performed of the brain using a 1.5 Tesha MRI system. Sagittal, coronal, and axial i maging was obtained with standard imaging sequences. Images were obtained pre- and postintravenous co ntrast, 7.5 mL Gadavist. Findings: There is a lesion seen in the anterior right temporal lobe. The lesion follows subcortical white matter and does not definitely involve the cortex. The lesion has increased signal intensity on both FLAIR and T2-weighted imaging and shows no evidence of abnormal enhancement. The lesion is isov olumic. Maximum dimension is 2 cm anterior to posterior. There are a few small periventricular and de ep hemispheric white matter lesions bilaterally, which are subcentimeter in size and show no evidence of diffusion restriction or abnormal enhancement. No evidence for intracranial hemorrhage. The ventr icles, sulci, and cisterns are within normal limits for the patient's age. No evidence for an extraax ial fluid collection. Craniocervical junction is unremarkable. No evidence for an air-fluid level in the paranasal sinuses. Impression: 1. There is a 2 cm lesion in the anterior right temporal lobe. This appears to involve the subcortica l white matter and is isovolumic without evidence for abnormal enhancement or diffusion restriction. Differential would include atypical demyelinating disease. Glioma could not be excluded. 2. A few periventricular and deep hemispheric white matter lesions bilaterally, which are nonspecific and could be seen with small vessel ischemic disease, gliosis from migraine or trauma, or atypical d emyelinating disease. No evidence for acute or subacute infarct. Results discussed with Dr. Emeterio Castellano. This was also reviewed by Dr. Mayur Michaels, who concurs.
[2016-05-31 18:13] VITALS: BP 133/82; PULSE 72; TEMP 97.3; O2SAT 95
== END 2016-05-31 18:13 | disposition home or self-care (01) ==
DX: R51 Headache (principal); F17.200 Nicotine dependence, unspecified, uncomplicated; Z79.01 Long term (current) use of anticoagulants
CPT/HCPCS: 96374; A9585; J2765

== ENCOUNTER 2016-06-16 23:01 | Emergency (ER) | payer MEDICAID ==
[2016-06-16 23:10] VITALS: RESP 16; TEMP 98.4
--- NOTE | 2016-06-16 23:16 | EDPHY ---
H & P Stated Complaint: C/O cp/svt Time Seen by Provider: 06/16/16 23:02 HPI/ROS: Chief complaint: Palpitations and chest pain HPI: Patient presents with the onset of nausea at about 10 o'clock this evening. Patient checked her heart rate and thought it was going about 106 to 170 beats per minute. She has history of SVT status post ablation last month. Patient states that felt like his prior episodes. Patient did perform some Valsalva maneuvers now but after about 10 minutes she felt that the heart rate dropped down to normal again. After that she felt nauseated has vomiting. She then developed some substernal chest pain at about 10 minutes after 10. He was central in nature and burning the intensity of 7/10. On EMS arrival patient was noted to be in a sinus rhythm with a normal rate. She was given aspirin and 1 nitroglycerin. Patient then dropped her blood pressure to is the 80 systolic. Developed a headache. Of note the patient was also recently diagnosed with a brain lesion on a MRI last month. She is pending further evaluation of this. No associated shortness breath. Scrotal complaining of some mild nausea. No abdominal pain. No hematemesis. No diarrhea, constipation , or melena. Pain is not pleuritic. She does have a history of a PE in the past is currently taking Xarelto. ROS: 10 point Review of Systems is negative except as noted in the HPI. Physical exam: Gen: Awake, Alert, No Distress HEENT: Nose: no rhinorrhea Eyes: PERRLA, EOMI Mouth: Moist mucosa Neck: Supple, no JVD Chest: nontender, lungs clear to auscultation Heart: S1, S2 normal, no murmur Abd: Soft, non-tender, no guarding Back: no CVA tenderness, no midline tenderness Ext: no edema, non-tender Skin: no rash Neuro: CN II-XII intact, Sensation grossly intact, Strength 5/5 in bilateral upper and lower extremities - Personal History Tetanus Vaccine Date: 2008 - Medical/Surgical History Hx Asthma: No Hx Chronic Respiratory Disease: No Hx Diabetes: No Hx Cardiac Disease: Yes Hx Renal Disease: No Hx Cirrhosis: No Hx Alcoholism: Yes Hx HIV/AIDS: No Hx Splenectomy or Spleen Trauma: No Other PMH: PE,DVT'S,HYPOTHYROIDISM, migraines, Hematolyic gene mutation, PTSD, etoh (sober since 2008), SVT. SURG: Hysterectomy, spinal fusion c4-6, right toe surgery, breast biopsy, tubal ligation, ablation for SVT - Social History Smoking Status: Current every day smoker Constitutional: Initial Vital Signs Temperature (C) 36.9 C 06/16/16 23:07 Heart Rate 85 06/16/16 23:07 Respiratory Rate 16 06/16/16 23:07 Blood Pressure 89/54 L 06/16/16 23:07 O2 Sat (%) 94 06/16/16 23:07 O2 Delivery Mode Room Air Allergies/Adverse Reactions: morphine [Morphine] Allergy (Verified 06/16/16 23:12) Itching ondansetron HCl [From Zofran] Allergy (Verified 06/16/16 23:12) shellfish derived Allergy (Verified 06/16/16 23:12) bee sting Allergy (Uncoded 08/31/14 10:40) Unknown Home Medications: Medication Instructions Recorded Zolpidem Tartrate [Ambien 5MG (*)] 10 mg PO HS PRN 08/15/13 Levothyroxine [Synthroid 50 mcg 50 mcg PO DAILY06 05/25/16 (*)] Metoprolol Succinate Xr [Toprol Xl 25 mg PO DAILY 05/25/16 25 mg (*)] Acetaminophen [Tylenol 325mg (*)] 325 - 650 mg PO Q4HRS PRN #0 tab 05/26/16 Aspirin [Aspirin 81mg (*)] 81 mg PO DAILY #0 tab.chew 05/26/16 Ibuprofen 400 mg PO Q8HRS #9 tablet 05/26/16 Meloxicam [Mobic 7.5 mg] 7.5 mg PO 05/31/16 Metoclopramide [Reglan 10 mg tab 10 mg PO BID PRN #10 tab 05/31/16 (RX)] Xarelto 06/16/16 Medical Decision Making - Diagnostics EKG Interpretation: EC:29 sinus rhythm with a rate of 79. Normal intervals. Normal axis. No acute no acute ST or T-wave changes. Imaging: Chest x-ray: Negative. Interpreted by Dr. Schmid ED Course/Re-evaluation: Patient has had complete resolution of her chest discomfort after a GI cocktail. ECG is normal. Initial troponin is 0. Patient is presenting with atypical chest pain which actually being after she vomited after her feeling some heart palpitations. She reported that she had I heart rate 160s to 170s. She has had a sinus rhythm for he her duration of her time here. Blood work is normal. It is difficult to ascertain if she actually had an episode of SVT or not. No evidence of acute coronary syndrome at this time. Her pain began after her heart rate resolved after her Valsalva maneuver. Plan will be to discharge to home with follow-up with Dr. Moreno, her software requirements engineer for further evaluation. - Data Points Laboratory Results: Laboratory Results 06/16/16 23:00 06/16/16 06/16/16 23:00 23:00 WBC 7.05 10^3/uL 10^3/uL (3.80-9.50) RBC 4.00 10^6/uL L 10^6/uL (4.18-5.33) Hgb 12.6 g/dL g/dL (12.6-16.3) Hct 37.1 % L % (38.0-47.0) MCV 92.8 fL fL (81.5-99.8) MCH 31.5 pg pg (27.9-34.1) MCHC 34.0 g/dL g/dL (32.4-36.7) RDW 12.9 % % (11.5-15.2) Plt Count 268 10^3/uL 10^3/uL (150-400) MPV 9.1 fL fL (8.7-11.7) Neut % (Auto) 47.2 % % (39.3-74.2) Lymph % (Auto) 44.8 % % (15.0-45.0) [place] % (Auto) 5.7 % % (4.5-13.0) Eos % (Auto) 1.6 % % (0.6-7.6) Baso % (Auto) 0.6 % % (0.3-1.7) Nucleat RBC Rel Count 0.0 % % (0.0-0.2) Absolute Neuts (auto) 3.33 10^3/uL 10^3/uL (1.70-6.50) Absolute Lymphs (auto) 3.16 10^3/uL H 10^3/uL (1.00-3.00) Absolute Monos (auto) 0.40 10^3/uL 10^3/uL (0.30-0.80) Absolute Eos (auto) 0.11 10^3/uL 10^3/uL (0.03-0.40) Absolute Basos (auto) 0.04 10^3/uL 10^3/uL (0.02-0.10) Absolute Nucleated RBC 0.00 10^3/uL 10^3/uL (0-0.01) Immature Gran % 0.1 % % (0.0-1.1) Immature Gran # 0.01 10^3/uL 10^3/uL (0.00-0.10) Troponin I < 0.012 ng/mL ng/mL (0-0.034) Medications Given: Discontinued Medications Hydromorphone HCl (Dilaudid) 0.5 mg IVP EDNOW ONE Stop: 06/16/16 23:20 Last Admin: 06/16/16 23:45 Dose: 0.5 mg Sodium Chloride (Ns) 1,000 mls @ 0 mls/hr IV ONCE ONE PRN Reason: Wide Open Stop: 06/16/16 23:19 Last Admin: 06/16/16 23:45 Dose: 1,000 mls Pantoprazole Sodium 40 mg/ (Sodium Chloride) 100 mls @ 200 mls/hr IV EDNOW ONE Stop: 06/16/16 23:48 Last Admin: 06/16/16 23:45 Dose: 100 mls Miscellaneous Medication (Gi Cocktail) 55 ml PO EDNOW ONE Stop: 06/16/16 23:56 Last Admin: 06/16/16 23:54 Dose: 55 ml Departure - Departure Disposition: Home, Routine, Self-Care Clinical Impression: Atypical chest pain Condition: Good Instructions: Chest Pain (ED) Additional Instructions: Follow up with Dr. Moreno, her software requirements engineer for re-evaluation of possible SVT. Return to the emergency depart for increasing chest pain, shortness of breath, fevers, chills, palpitations, or any other concerns. Referrals: Erlin Moreno MD [Medical Doctor] - As per Instructions
[2016-06-16] MEDS ORDERED: NS 1,000 ML IV ONE (23:18)
[2016-06-16] MEDS ORDERED: HYDROmorphONE/DILAUDID 1 MG/ML SYR IVP ONE (23:19)
[2016-06-16] MEDS ORDERED: PANTOPRAZOLE SODIUM 40 MG in NS 100 ML IV ONE (23:19)
[2016-06-16 23:25] LABS: % IMMATURE GRANULYOCYTES 0.1 % (0.0-1.1); ABSOLUTE IMMATURE GRANULOCYTES 0.01 10^3/uL (0.00-0.10); ADD DIFF? NO; ADD MORPH? NO; ADD SCAN? NO; ATYPICAL LYMPHOCYTE FLAG 0 (0-99); FRAGMENT RBC FLAG 0 (0-99); HEMATOCRIT 37.1 % (38.0-47.0); HEMOGLOBIN 12.6 g/dL (12.6-16.3); LEFT SHIFT FLG 0 (0-99); LIPEMIA HEMOLYSIS FLAG 90 (0-99); MEAN CELL HEMOGLOBIN 31.5 pg (27.9-34.1); MEAN CELL VOLUME 92.8 fL (81.5-99.8); MEAN PLATELET VOLUME 9.1 fL (8.7-11.7); PLATELET CLUMPS FLAG 0 (0-99); PLATELET COUNT 268 10^3/uL (150-400); RED CELL DISTRIBUTION WIDTH 12.9 % (11.5-15.2)
--- NOTE | 2016-06-16 23:31 | CPEKG ---
Heart Rate: 79 RR Interval: 759 P-R Interval: 148 QRSD Interval: 84 QT Interval: 388 QTC Interval: 445 P [place]: 58 QRS [place]: 75 T Wave [place]: 63 EKG Severity - NORMAL ECG - EKG Impression: SINUS RHYTHM Electronically Signed By: Raj Christianson 17-Jun-2016 08:38:40
[2016-06-16] MEDS ORDERED: PANTOPRAZOLE SODIUM 40 MG VIAL ONE (23:33)
[2016-06-16] MEDS ORDERED: NS 50 ML BAG IV ONE (23:34)
[2016-06-16] MEDS ORDERED: MAALOX/LIDO/HYOSC GI COCKTAIL 55 ML BOTTLE ONE (23:53)
[2016-06-16] MEDS ORDERED: MAALOX/LIDO/HYOSC GI COCKTAIL 55 ML BOTTLE PO ONE (23:55)
[2016-06-17 01:03] VITALS: BP 87/57; PULSE 67; O2SAT 96
== END 2016-06-17 01:03 | disposition home or self-care (01) ==
LOC: EDUNIT#
DX: R07.9 Chest pain, unspecified (principal); F17.200 Nicotine dependence, unspecified, uncomplicated; Z79.82 Long term (current) use of aspirin; Z79.01 Long term (current) use of anticoagulants
CPT/HCPCS: 96365; J1170

== ENCOUNTER 2016-08-18 19:03 | Emergency (ER) | payer MEDICAID ==
[2016-08-18 19:41] VITALS: RESP 16; TEMP 97.9
[2016-08-18] MEDS ORDERED: HYDROmorphONE/DILAUDID 1 MG/ML SYR IVP ONE (20:17)
[2016-08-18 20:28] LABS: % IMMATURE GRANULYOCYTES 0.2 % (0.0-1.1); ABSOLUTE IMMATURE GRANULOCYTES 0.01 10^3/uL (0.00-0.10); ADD DIFF? NO; ADD MORPH? NO; ADD SCAN? NO; ATYPICAL LYMPHOCYTE FLAG 20 (0-99); FRAGMENT RBC FLAG 0 (0-99); HEMOGLOBIN 13.6 g/dL (12.6-16.3); LEFT SHIFT FLG 0 (0-99); LIPEMIA HEMOLYSIS FLAG 90 (0-99); MEAN CELL HEMOGLOBIN 30.8 pg (27.9-34.1); MEAN CELL VOLUME 90.5 fL (81.5-99.8); MEAN PLATELET VOLUME 8.7 fL (8.7-11.7); PLATELET CLUMPS FLAG 10 (0-99); PLATELET COUNT 226 10^3/uL (150-400); RED BLOOD CELL COUNT 4.42 10^6/uL (4.18-5.33); RED CELL DISTRIBUTION WIDTH 12.1 % (11.5-15.2)
[2016-08-18 20:59] LABS: ANION GAP 9 mEq/L (8-16); CALCIUM 9.8 mg/dL (8.5-10.4); CARBON DIOXIDE 25 mEq/l (22-31); CHLORIDE 104 mEq/L (97-110); CREATININE 0.7 mg/dL (0.6-1.0); GLOMERULAR FILTRATION RATE > 60; GLUCOSE 87 mg/dL (70-100); SODIUM 138 mEq/L (134-144)
--- NOTE | 2016-08-18 21:11 | EDPHY ---
H & P Stated Complaint: JORDAN Time Seen by Provider: 08/18/16 19:59 HPI/ROS: Chief Complaint: Headache HPI: 50-year-old female who has a history of a known brain lesion is currently being worked up by Dr. Coombs, neurosurgery. Patient has had having worsening headaches for the past couple of weeks. She has been normally taking Reglan. Today her headache is worse, up to about a 7/10. She has had 4 doses of Reglan last 24 hours without significant relief. Has also had ibuprofen at 2 o'clock this morning and at 4 o'clock this afternoon. As she is not taking any other analgesia. She called spoke with the on-call neurosurgeon who instructed her to come to the emergency department for further evaluation. . ROS: 10 point Review of Systems is negative except as noted in the HPI. PMH: SVT, seizure disorder, brain lesion, clotting disorder, PE Medications: Keppra Ibuprofen Xarelto Reglan Allergies: Morphine, ondansetron Social History: No smoking, no alcohol, no recreational drug use Family History: non-contributory Physical Exam: Gen: Awake, Alert, No Distress HEENT: Nose: no rhinorrhea Eyes: PERRLA, EOMI Mouth: Moist mucosa Neck: Supple, no JVD Chest: nontender, lungs clear to auscultation Heart: S1, S2 normal, no murmur Abd: Soft, non-tender, no guarding Back: no CVA tenderness, no midline tenderness Ext: no edema, non-tender Skin: no rash Neuro: CN II-XII intact, Sensation grossly intact, Strength 5/5 in bilateral upper and lower extremities - Personal History LMP (Females 10-55): Hysterectomy Current Tetanus/Diphtheria Vaccine: Yes Current Tetanus Diphtheria and Acellular Pertussis (TDAP): Yes Tetanus Vaccine Date: 2008 - Medical/Surgical History Hx Asthma: No Hx Chronic Respiratory Disease: No Hx Diabetes: No Hx Cardiac Disease: Yes Hx Renal Disease: No Hx Cirrhosis: No Hx Alcoholism: Yes Hx HIV/AIDS: No Hx Splenectomy or Spleen Trauma: No Other PMH: PE,DVT'S,HYPOTHYROIDISM, migraines, Hematolyic gene mutation, PTSD, etoh (sober since 2008), SVT. SURG: Hysterectomy, spinal fusion c4-6, right toe surgery, breast biopsy, tubal ligation, ablation for SVT, brain lesion, seizures - Social History Smoking Status: Current every day smoker Constitutional: Initial Vital Signs Temperature (C) 36.6 C 08/18/16 19:37 Heart Rate 72 08/18/16 19:37 Respiratory Rate 16 08/18/16 19:37 Blood Pressure 101/80 08/18/16 19:37 O2 Sat (%) 94 08/18/16 19:37 O2 Delivery Mode Room Air Allergies/Adverse Reactions: morphine [Morphine] Allergy (Verified 08/18/16 19:35) Itching ondansetron HCl [From Zofran] Allergy (Verified 08/18/16 19:35) shellfish derived Allergy (Verified 08/18/16 19:35) bee sting Allergy (Uncoded 08/18/16 19:35) Unknown Home Medications: Medication Instructions Recorded Zolpidem Tartrate [Ambien 5MG (*)] 10 mg PO HS PRN 08/15/13 Levothyroxine [Synthroid 50 mcg 50 mcg PO DAILY06 05/25/16 (*)] Metoprolol Succinate Xr [Toprol Xl 25 mg PO DAILY 05/25/16 25 mg (*)] Acetaminophen [Tylenol 325mg (*)] 325 - 650 mg PO Q4HRS PRN #0 tab 05/26/16 Ibuprofen 400 mg PO Q8HRS #9 tablet 05/26/16 Meloxicam [Mobic 7.5 mg] 7.5 mg PO 05/31/16 Metoclopramide [Reglan 10 mg tab 10 mg PO BID PRN #10 tab 05/31/16 (RX)] Xarelto 06/16/16 Medical Decision Making - Diagnostics Imaging Results: Imaging Impressions Head CT 08/18/16 20:17 Impression: 1. Negative for hemorrhage. 2. Low-attenuation area in the right temporal lobe with no associated blood or significant mass effect. 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 Coombs. Patient is anticoagulated with a worse headache which is concerning for the possibility of intracranial bleed. Will obtain CT scanning given analgesia and reassess. 2129 CT scan of the brain shows the known lesion with no bleeding. Patient is improved after IV analgesia. She is known to Dr. Coombs, neurosurgery. Plan will be to discharge with follow-up with Neurosurgery. - Data Points Laboratory Results: Laboratory Results 08/18/16 20:15 08/18/16 20:15 08/18/16 08/18/16 20:15 20:15 WBC 5.65 10^3/uL 10^3/uL (3.80-9.50) RBC 4.42 10^6/uL 10^6/uL (4.18-5.33) Hgb 13.6 g/dL g/dL (12.6-16.3) Hct 40.0 % % (38.0-47.0) MCV 90.5 fL fL (81.5-99.8) MCH 30.8 pg pg (27.9-34.1) MCHC 34.0 g/dL g/dL (32.4-36.7) RDW 12.1 % % (11.5-15.2) Plt Count 226 10^3/uL 10^3/uL (150-400) MPV 8.7 fL fL (8.7-11.7) Neut % (Auto) 50.4 % % (39.3-74.2) Lymph % (Auto) 39.5 % % (15.0-45.0) [place] % (Auto) 8.1 % % (4.5-13.0) Eos % (Auto) 1.1 % % (0.6-7.6) Baso % (Auto) 0.7 % % (0.3-1.7) Nucleat RBC Rel Count 0.0 % % (0.0-0.2) Absolute Neuts (auto) 2.85 10^3/uL 10^3/uL (1.70-6.50) Absolute Lymphs (auto) 2.23 10^3/uL 10^3/uL (1.00-3.00) Absolute Monos (auto) 0.46 10^3/uL 10^3/uL (0.30-0.80) Absolute Eos (auto) 0.06 10^3/uL 10^3/uL (0.03-0.40) Absolute Basos (auto) 0.04 10^3/uL 10^3/uL (0.02-0.10) Absolute Nucleated RBC 0.00 10^3/uL 10^3/uL (0-0.01) Immature Gran % 0.2 % % (0.0-1.1) Immature Gran # 0.01 10^3/uL 10^3/uL (0.00-0.10) Sodium 138 mEq/L mEq/L (134-144) Potassium 4.0 mEq/L mEq/L (3.5-5.2) Chloride 104 mEq/L mEq/L (97-110) Carbon Dioxide 25 mEq/l mEq/l (22-31) Anion Gap 9 mEq/L mEq/L (8-16) BUN 10 mg/dL mg/dL (7-23) Creatinine 0.7 mg/dL mg/dL (0.6-1.0) Estimated GFR > 60 Glucose 87 mg/dL mg/dL (70-100) Calcium 9.8 mg/dL mg/dL (8.5-10.4) Medications Given: Discontinued Medications Hydromorphone HCl (Dilaudid) 0.5 mg IVP EDNOW ONE Stop: 08/18/16 20:18 Last Admin: 08/18/16 20:31 Dose: 0.5 mg Oxycodone/Acetaminophen (Percocet 5/325) 1 tab PO EDNOW ONE Stop: 08/18/16 21:31 Last Admin: 08/18/16 21:31 Dose: 1 tab Departure - Departure Disposition: Home, Routine, Self-Care Clinical Impression: Headache, Brain lesion Condition: Good Instructions: Acute Headache (ED) Additional Instructions: Follow up with Dr. Coombs, neurosurgery, in 2-3 days for re-evaluation. Return emergency depart for increasing headache, nausea, vomiting, vision or hearing changes, or any other concerns. Referrals: Adriana Sandoval PA [Primary Care Provider] - As per Instructions
[2016-08-18] MEDS ORDERED: OXYCODONE/APAP 5/325 TAB PO ONE (21:30)
[2016-08-18] MEDS ORDERED: OXYCODONE/APAP 5/325MG PREPACK#4 BTL TAKEHOME ONE (21:42)
[2016-08-18 21:59] VITALS: BP 112/80; PULSE 69; O2SAT 95
== END 2016-08-18 21:56 | disposition home or self-care (01) ==
DX: G93.9 Disorder of brain, unspecified (principal); F17.200 Nicotine dependence, unspecified, uncomplicated; Z79.01 Long term (current) use of anticoagulants
CPT/HCPCS: 96374; J1170

== ENCOUNTER 2016-08-31 07:57 | Inpatient (IN) | payer MEDICAID ==
[~2016-08-31 07:57] MED LIST: ceFAZolin 2 GM/DEXTROSE 100 ML IV ONE
[2016-08-31] MEDS ORDERED: LIDOCAINE 1% 2 ML INJ ONE (08:02)
[2016-08-31] MEDS ORDERED: SURGIFLO MATRIX KIT WITH THROMBIN TP ONE (08:07)
[2016-08-31] MEDS ORDERED: AVITENE POWDER 1 GM JAR TP ONE (08:08)
[2016-08-31] MEDS ORDERED: BUPIVACAINE/EPI 0.25% 30 ML SDV ONE (08:08)
[2016-08-31] MEDS ORDERED: MANNITOL 20% 100 GM/500 ML BAG IV ONE (08:08)
[2016-08-31] MEDS ORDERED: THROMBIN (BOVINE) 5,000 UNIT VIAL TP ONE (08:08)
[2016-08-31] MEDS ORDERED: BACITRACIN 50,000 UNITS/10 ML SYR IRR ONE (08:09)
[2016-08-31] MEDS ORDERED: LIDOCAINE 1% 5 ML SDV ID PRN (08:17)
[2016-08-31] MEDS ORDERED: LR 1,000 ML IV ONE (08:17)
[2016-08-31] MEDS ORDERED: GADOBUTROL 10 ML VIAL IVP ONE (09:06)
[2016-08-31] MEDS ORDERED: fentaNYL 250 MCG/5 ML INJ ONE (09:43)
[2016-08-31] MEDS ORDERED: REMIFENTANIL HCL 1 MG VIAL ONE ×2 (09:43→11:37)
[2016-08-31] MEDS ORDERED: PROPOFOL/EMULSION 500 MG/50 ML BOTTLE IV ONE ×2 (09:43→11:38)
[2016-08-31] MEDS ORDERED: ROCURONIUM 100 MG/10 ML VIAL ONE (09:44)
[2016-08-31] MEDS ORDERED: MIDAZOLAM 2 MG/2 ML VIAL ONE (09:45)
[2016-08-31] MEDS ORDERED: BISACODYL 10 MG SUPP PR PRN (09:47)
[2016-08-31] MEDS ORDERED: niCARdipine/NACL 200 ML IV PRN (09:47)
[2016-08-31] MEDS ORDERED: diphenhydrAMINE 25 MG CAP PO PRN (09:47)
[2016-08-31] MEDS ORDERED: POLYETHYLENE GLYCOL 3350 17 GM PKT PO PRN (09:47)
[2016-08-31] MEDS ORDERED: MAGNESIUM HYDROXIDE 30 ML UDCUP PO PRN (09:47)
[2016-08-31] MEDS ORDERED: ACETAMINOPHEN 325 MG TAB PO PRN (09:47)
[2016-08-31] MEDS ORDERED: LACTULOSE 20 GM/30 ML UDCUP PO PRN (09:47)
[2016-08-31] MEDS ORDERED: DIAZEPAM 5 MG TAB PO PRN (09:47)
[2016-08-31] MEDS ORDERED: PROCHLORPERAZINE MALEATE 5 MG TAB PO PRN (09:52)
[2016-08-31] MEDS ORDERED: GENTAMICIN SULFATE 80 MG/2 ML VIAL ONE (09:54)
--- NOTE | 2016-08-31 09:57 | POSTOPPROG ---
Post Op Note Date of Operation: 08/31/16 Surgeon: Adrian Coombs Track Layer: Beba Davila PA-C Anesthesia: GET(General Endotracheal) Pre-op Diagnosis: Right temporal brain mass Post-op Diagnosis: same Procedure: Right sided temporal brain mass for resection/biopsy of brain mass Findings: See operative report Inf/Abcess present in the surg proc area at time of surgery?: No Depth: Organ Space Complications: None. SOAP Progress Note Assessment/Plan: Assessment: Plan: S: Patient awake in PACU. 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 Coombs in PACU 08/31/16 09:55 08/31/16 14:02
[2016-08-31] MEDS ORDERED: NS W/ 20 KCl/L 1,000 ML IV SCH (10:00)
[2016-08-31] MEDS ORDERED: SCOPOLAMINE HYDROBROMIDE 1.5 MG PATCH TD ONE (10:30)
[2016-08-31] MEDS ORDERED: fentaNYL 100 MCG/2 ML INJ ONE ×3 (13:24→14:08)
[2016-08-31] MEDS ORDERED: PROMETHAZINE HCL 12.5 MG SUPPR PR ONE (13:30)
[2016-08-31] MEDS ORDERED: PROMETHAZINE HCL 25 MG SUPPR PR ONE (14:00)
[2016-08-31] MEDS ORDERED: METOCLOPRAMIDE 10 MG TAB PO PRN (14:05)
[2016-08-31] MEDS ORDERED: LEVETIRACETAM 750 MG PO SCH (14:15)
--- NOTE | 2016-08-31 14:18 | GOP ---
[f rep st] OPERATIVE REPORT DATE OF OPERATION: 08/31/2016 SURGEON: Adrian Coombs MD BASE REMOVER: Chuckie Angulo, DENNIS. PREOPERATIVE DIAGNOSIS: Right temporal brain lesion. POSTOPERATIVE DIAGNOSIS: Right temporal brain lesion. PROCEDURE PERFORMED: 1. Right temporal craniotomy. 2. Microsurgical gross total resection of right temporal intraparenchymal lesion. 3. Stealth stereotactic neuronavigation for volumetric gross total resection of brain lesion. 4. Use of the operative microscope. 5. Use of the intraoperative ultrasound. FINDINGS: Successful lesional resection. SPECIMENS: Right temporal brain lesion for frozen section and permanent pathology. ESTIMATED BLOOD LOSS: Approximately 50 cc. INDICATIONS: The patient is a 50-year-old woman who presented with a largely incidental finding of a right temporal lesion just lateral to the tip of the temporal horn of the ventricle, which was cody ght on T2 and FLAIR with no contrast enhancement. 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 She has had a couple of episodes which were somewhat concerning for seizure, therefore, we had started her on some Keppra as a preventative measure. [facility]/resection of this lesion. DESCRIPTION OF PROCEDURE: After informed consent was obtained from the patient, the patient was bro ught to the operating room, was placed in supine position on the operating table. A formal time-out was performed, identifying the patient by name, medical record number, and date of . Preopera tive antibiotics were given. The endotracheal tube was placed and general endotracheal anesthesia w as smoothly induced. The patient was given preoperative Decadron and mannitol. The head was placed in Mckeon pins and turned slightly toward the left side. The Stealth was then registered to the scalp using known surface landmarks and used to localize the area of the tumor, and a curved tempora l incision was then marked. A small strip of hair was clipped along the incision line and 20 cc of 0.25% Marcaine with epinephrine infiltrated in the skin for hemostasis. The head was then prepped a nd draped in the normal sterile fashion. The skin incision was made using a 10 blade and the subcut aneous tissues were dissected using monopolar electrocautery. The frontal branch of the superficial temporal artery was ligated and divided and the parietal branch was left intact. The galea was ope edilberto and Mick clips were placed for hemostasis. An incision in the temporalis fascia and muscle was made in line with the incision, and a single myocutaneous flap was retracted anteriorly. Again, we checked with the Stealth to localize the area of the lesion and we exposed down to the root of the zygoma. Once we had good exposure, a bur hole was placed at the root of the zygoma and 1 in the fro ntal region just above the sylvian fissure. We then turned a roughly 2.5 x 2.5 cm temporal cranioto my flap using the craniotome. All bleeding was controlled with bipolar electrocautery and Gelfoam. The high-speed drill was then used to drill down the area in the subtemporal region somewhat furthe r, giving a more inferior temporal exposure. At this point, the area of the trajectory to the tumor was localized using the Stealth and the intraoperative ultrasound was used to visualize the lesion through the dura to be sure we had good enough exposure. The dura was then opened in a cruciate fas hion and tacked up using 4-0 Nurolon. The inferior temporal sulcus was identified and the operative microscope was brought into the field and the remainder of the procedure was performed under high-p ower magnification. Began by opening the inferior temporal sulcus to have a trans-sulcal trajectory to the tumor. Once we were at the bottom of the sulcus, a corticectomy was made and in relatively short order some very rubbery tissue was visualized. This was sent for a frozen section, which even tually came back as lesional tissue, likely low-grade glioma. We then continued this resection of t his very rubbery tissue, which did not coagulate very well with bipolar electrocautery. I continued removing this in a piecemeal fashion until we could see normal brain around the entire circumferenc e of the cavity. The anterior tip of the temporal horn of the lateral ventricle was identified at t he depth of the cavity, which allowed us to know that we had gotten good enough medial exposure. I, again, checked all the edges of the cavity and did not see any residual abnormal tissue. Therefore , all bleeding was controlled with bipolar electrocautery. The cavity was lined with Surgicel. The ultrasound was again used to be sure that we did not see any further abnormal tissue, which we did not. At this point, the wound was copiously irrigated using gentamicin irrigation. The dura was cl osed using 4-0 Nurolon in a running fashion. Gelfoam was placed outside the dura to control any ble eding, and the craniotomy flap was plated back in place using Synthes titanium plates and screws. T he wound was again copiously irrigated using bacitracin irrigation. The temporalis muscle and fasci a was closed using interrupted 2-0 Vicryl. The galea was closed using interrupted 2-0 Vicryl. The skin was closed using a running 4-0 Monocryl. The hair was washed and bacitracin ointment was place d over the wound. The patient was awakened in the operating room. She was extubated and was transf erred to the PACU in stable condition. There were no operative complications. I was scrubbed and p resent for the entire procedure. All sponge and needle counts were correct at the end of the case. FLUIDS: Urine output per the anesthesia record. DRAINS: There were no drains. /[id number]/MODL
[2016-08-31] MEDS ORDERED: HYDROmorphONE/DILAUDID 1 MG/ML SYR IVP PRN (14:21)
[2016-08-31] MEDS ORDERED: *MD ORDERING ONLY-DEXAMETHASONE TAPER IVP/PO SCH (14:30)
[2016-08-31] MEDS: DEXAMETHASONE 4 MG TAB PO SCH ×2 (17:18→23:55)
[2016-08-31] MEDS: HYDROmorphONE/DILAUDID 1 MG/ML SYR IVP PRN ×4 (17:19→23:55)
[2016-08-31] MEDS: HYDROCODONE/APAP 10/325 TAB PO PRN (19:18)
[2016-08-31] MEDS ORDERED: levETIRAcetam 250 MG TAB PO SCH (21:00)
[2016-08-31] MEDS: FAMOTIDINE 20 MG TAB PO SCH (21:34)
[2016-08-31] MEDS: SENNOSIDES/DOCUSATE SODIUM TAB PO SCH (21:34)
[2016-08-31] MEDS: levETIRAcetam 250 MG TAB PO SCH (21:36)
[2016-09-01] MEDS: DEXAMETHASONE 4 MG TAB PO SCH ×2 (05:51→11:51)
[2016-09-01] MEDS: HYDROCODONE/APAP 10/325 TAB PO PRN ×2 (05:51→11:51)
[2016-09-01] MEDS ORDERED: LEVOTHYROXINE 50 MCG TAB PO SCH (06:00)
[2016-09-01] MEDS: HYDROmorphONE/DILAUDID 1 MG/ML SYR IVP PRN ×2 (06:02→10:00)
--- NOTE | 2016-09-01 09:10 | NEUSURGPN ---
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 Coombs Subjective: Tenderness over incision. Denies any dizziness, nausea Objective: NAD A&Ox3 CN II-XII grossly intact, EOMI, PERRLA, MAEX4 Incision c/d/i Catheter Insertion Date: 08/31/16 - Physician Discussed Patient with : [facility] Physical Exam - Vitals, I&O, Labs I and O 08/31/16 09/01/16 09/02/16 05:59 05:59 05:59 Intake Total 3760 Output Total 1475 Balance 2285 Weight 74.843 kg Intake: Oral (ml) 1120 IV Intake (ml) 1200 IV Infused (ml) 1440 NS W/ 20 KCl/L 1,000 ml @ 1440 100 mls/hr IV CONT ALYSSA Rx#:[id number] Output: Urine (ml) 1375 Catheter 1375 Estimated Blood Loss (ml) 100 Other: Number of Voids Catheter 3 Vital Signs Temp Pulse Resp BP Pulse Ox 36.6 C 92 14 113/73 92 09/01/16 06:00 09/01/16 06:00 09/01/16 06:00 09/01/16 06:00 09/01/16 06:00 ICD10 Worksheet Patient Problems: Problems Problem Status Onset Hypoxemia Acute Supraventricular tachycardia Acute
[2016-09-01] MEDS: levETIRAcetam 250 MG TAB PO SCH (09:11)
[2016-09-01] MEDS: FAMOTIDINE 20 MG TAB PO SCH (09:11)
[2016-09-01] MEDS: SENNOSIDES/DOCUSATE SODIUM TAB PO SCH (09:11)
[2016-09-01] MEDS ORDERED: GADOBUTROL 10 ML VIAL IVP ONE (10:49)
[2016-09-01 14:20] VITALS: PULSE 78; TEMP 99
[2016-09-01 14:21] VITALS: BP 121/71; RESP 11; O2SAT 95
[2016-09-01] MEDS ORDERED: DEXAMETHASONE 2 MG TAB PO SCH (18:00)
[2016-09-03] MEDS ORDERED: DEXAMETHASONE 2 MG TAB PO SCH (06:00)
== END 2016-09-01 16:10 | disposition home or self-care (01) | DRG 27 ==
LOC: F3E 07:57 → F2N 14:15
PROVIDERS: ADMIT Neurological Surgery; ATTEND Neurological Surgery
DX: D33.2 Benign neoplasm of brain, unspecified (principal); Z86.711 Personal history of pulmonary embolism; Z86.718 Personal history of other venous thrombosis and embolism; Z87.891 Personal history of nicotine dependence; Z79.01 Long term (current) use of anticoagulants
CPT/HCPCS: 92523-GN; 97161-GP; 97165-GO; A9585; C1713; J0690; J1170; J2250; J2704; J3010

== ENCOUNTER 2016-10-19 14:44 | Emergency (ER) | payer MEDICAID ==
[2016-10-19 15:02] VITALS: RESP 16; O2SAT 95
[2016-10-19] MEDS ORDERED: NS 500 ML IV ONE (15:21)
[2016-10-19] MEDS ORDERED: METOCLOPRAMIDE 10 MG/2 ML VIAL IVP ONE (15:21)
[2016-10-19] MEDS ORDERED: DEXAMETHASONE 10 MG/ML VIAL IVP ONE (15:21)
[2016-10-19] MEDS ORDERED: ONDANSETRON 4 MG/2 ML VIAL IVP ONE (15:21)
[2016-10-19] MEDS ORDERED: HYDROmorphONE/DILAUDID 1 MG/ML SYR IVP ONE (15:21)
--- NOTE | 2016-10-19 15:28 | EDPHY ---
H & P Time Seen by Provider: 10/19/16 15:03 HPI/ROS: HPI Headache. 50-year-old female by private vehicle. This patient complains of a gradual onset right-sided headache which she describes as aching and bandlike onset Wednesday morning. She reports that has been gradually getting worse. She has had some associated nausea. No visual auras. She has had migraines similar to this headache in the past. She states that she does not have visual aura with this headache. She does not described as the worst headache of her life but she is concerned that it has been getting worse. She has a significant past medical history which includes a blood clotting disorder. She is currently on Xarelto. She also had brain surgery on August 31. This was for biopsy of demyelinating lesions that were found on 1 of her scans. She denies fever. She has no other complaints. ROS: Constitutional: No fever, no chills. No weakness. Eyes: No discharge. No changes in vision. ENT: No sore throat. No nasal congestion or rhinorrhea. Respiratory: No cough. No shortness of breath. Cardiac: No chest pain, no palpitations. Gastrointestinal: No abdominal pain, no vomiting, no diarrhea. Genitourinary: No hematuria. No dysuria or increased frequency with urination. Musculoskeletal: No back pain. No neck pain. No myalgias or arthralgias. Skin: No rashes. Neurological: As above. No focal weakness or altered sensation. Past medical history: PEs, DVTs, hypothyroidism, factor 5 Leiden deficiency, alcohol abuse, SVT with ablation in May that was successful, hysterectomy, spinal fusion from C4 through C6. Seizure disorder. He has a local primary care physician Social history: Nonsmoker. Here by herself. She has a previous history of alcohol abuse. She has been sober since 2008 Physical Exam: General Appearance: Alert, no distress. She does not appear toxic. She is sitting upright on the gurney. This patient is responding to questions appropriately and in full sentences. This patient appears well-hydrated and well-nourished. Eyes: Pupils equal and round no pallor or injection. No lid edema, erythema or injection. No photophobia. No nystagmus. Respiratory: There are no retractions, lungs are clear to auscultation with good air movement bilaterally. Cardiovascular: Regular rate and rhythm. No murmur. Gastrointestinal: Abdomen is soft and nontender, no masses, bowel sounds normal. No focal tenderness at McBurney's point. No Machado sign. Neurological: Motor sensory function is grossly intact. Cranial nerves are normal. Gait is normal. Skin: Warm and dry, no rashes. Musculoskeletal: Neck is supple and nontender. No pain on flexion of her neck. Extremities are symmetrical. All joints range without pain or impingement. Psychiatric: No agitation. No depression. Database: EKG: Imaging: CT scan of head without contrast: No acute disease process or pathology noted. No significant changes from prior studies. Results were discussed with staff radiologist Dr. Humza Schmid. Procedures: Emergency department course: IV placed. She was placed on a monitor. She was started on IV normal saline with 500 cc to be given over the next hour. Her medication allergies have been reviewed. For treatment of her headache she will initially received 10 mg of IV Decadron, 10 mg of IV Reglan, 25 mg of IV Benadryl and 0.5 mg of IV hydromorphone. She will be sent for CT imaging, noncontrast. She consents this plan. 5:20 p.m., patient re-evaluated. Resting comfortably at this time. She reports resolution of her headache. She reports feeling much better. Results of blood work and CT scan were discussed with her. Repeat neurologic Assessment is nonfocal. Her neck is supple and nontender. No pain on flexion of the neck. She does not have any photophobia. She was offered further observation in the emergency department but she declined. She feels comfortable going home. She is requesting discharge. I discussed follow-up thoroughly with her. Return to emergency department precautions were reviewed. All of her questions were answered. She was discharged in good condition. Differential Diagnosis: The differential diagnosis on this patient includes but is not limited to migraine headache. Subarachnoid hemorrhage, cavernous sinus thrombosis, sagittal sinus thrombosis, meningitis, encephalitis, temporal arteritis unlikely. This represents a partial list of diagnoses considered. These considerations are based on history, physical exam, past history, reassessment and diagnostic testing. Smoking Status: Current every day smoker Constitutional: Initial Vital Signs Temperature (C) 36.7 C 10/19/16 14:51 Heart Rate 98 10/19/16 14:51 Respiratory Rate 16 10/19/16 14:51 Blood Pressure 104/54 L 10/19/16 14:51 O2 Sat (%) 95 10/19/16 14:51 O2 Delivery Mode Room Air Allergies/Adverse Reactions: morphine [Morphine] Allergy (Verified 10/19/16 14:51) Itching ondansetron HCl [From Zofran] Allergy (Verified 10/19/16 14:51) shellfish derived Allergy (Verified 10/19/16 14:51) bee sting Allergy (Uncoded 08/18/16 19:35) Unknown Home Medications: Medication Instructions Recorded Levothyroxine [Synthroid 50 mcg 50 mcg PO DAILY06 05/25/16 (*)] Metoclopramide [Reglan 10 mg tab 10 mg PO BID PRN #10 tab 05/31/16 (*)] Rivaroxaban [Xarelto 10mg (*)] 20 mg PO DAILY 06/16/16 LEVETIRACETAM [Keppra 750 mg] 750 mg PO BID 08/25/16 Dexamethasone [Decadron 2 MG (*)] 2 mg PO Q12H #0 tab 09/01/16 Dexamethasone [Decadron 2 MG (*)] 2 mg PO Q24H #0 tab 09/01/16 HYDROcodone/APAP 10/325 [[place]rient 1 - 2 tab PO Q6HRS PRN #0 tab 09/01/16 10/325 (*)] Medical Decision Making - Diagnostics Imaging Results: Imaging Impressions Head CT 10/19/16 15:22 Impression: Hypodensity in the right temporal lobe, at a site of tumor resection, possibly representing postsurgical change, stable to minimally increased in conspicuity since the previous MRI, with no definite acute intracranial findings. If symptoms persist and clinical suspicion warrants, consider MRI with contrast. Findings discussed with Claudette Bailey M.D., on October 19, 2016 at 1650 hours. - Data Points Laboratory Results: Laboratory Results 10/19/16 16:02 10/19/16 16:02 10/19/16 10/19/16 16:02 16:02 WBC 5.96 10^3/uL 10^3/uL (3.80-9.50) RBC 4.53 10^6/uL 10^6/uL (4.18-5.33) Hgb 13.7 g/dL g/dL (12.6-16.3) Hct 40.5 % % (38.0-47.0) MCV 89.4 fL fL (81.5-99.8) MCH 30.2 pg pg (27.9-34.1) MCHC 33.8 g/dL g/dL (32.4-36.7) RDW 13.1 % % (11.5-15.2) Plt Count 228 10^3/uL 10^3/uL (150-400) MPV 8.8 fL fL (8.7-11.7) Neut % (Auto) 59.5 % % (39.3-74.2) Lymph % (Auto) 32.6 % % (15.0-45.0) [place] % (Auto) 6.4 % % (4.5-13.0) Eos % (Auto) 0.8 % % (0.6-7.6) Baso % (Auto) 0.5 % % (0.3-1.7) Nucleat RBC Rel Count 0.0 % % (0.0-0.2) Absolute Neuts (auto) 3.55 10^3/uL 10^3/uL (1.70-6.50) Absolute Lymphs (auto) 1.94 10^3/uL 10^3/uL (1.00-3.00) Absolute Monos (auto) 0.38 10^3/uL 10^3/uL (0.30-0.80) Absolute Eos (auto) 0.05 10^3/uL 10^3/uL (0.03-0.40) Absolute Basos (auto) 0.03 10^3/uL 10^3/uL (0.02-0.10) Absolute Nucleated RBC 0.00 10^3/uL 10^3/uL (0-0.01) Immature Gran % 0.2 % % (0.0-1.1) Immature Gran # 0.01 10^3/uL 10^3/uL (0.00-0.10) Sodium 137 mEq/L mEq/L (134-144) Potassium 4.2 mEq/L mEq/L (3.5-5.2) Chloride 104 mEq/L mEq/L (97-110) Carbon Dioxide 21 mEq/l L mEq/l (22-31) Anion Gap 12 mEq/L mEq/L (8-16) BUN 12 mg/dL mg/dL (7-23) Creatinine 0.8 mg/dL mg/dL (0.6-1.0) Estimated GFR > 60 Glucose 91 mg/dL mg/dL (70-100) Calcium 10.7 mg/dL H mg/dL (8.5-10.4) Phosphorus 3.2 mg/dL mg/dL (2.5-4.5) Medications Given: Discontinued Medications Dexamethasone (Decadron Injection) 10 mg IVP EDNOW ONE Stop: 10/19/16 15:22 Last Admin: 10/19/16 16:21 Dose: 10 mg Diphenhydramine HCl (Benadryl Injection) 25 mg IVP EDNOW ONE Stop: 10/19/16 15:22 Last Admin: 10/19/16 16:21 Dose: 25 mg Hydromorphone HCl (Dilaudid) 0.5 mg IVP EDNOW ONE Stop: 10/19/16 15:22 Last Admin: 10/19/16 16:21 Dose: 0.5 mg Sodium Chloride (Ns) 500 mls @ 0 mls/hr IV ONCE ONE; Wide Open PRN Reason: Protocol Stop: 10/19/16 15:22 Last Admin: 10/19/16 16:22 Dose: 500 mls Metoclopramide HCl (Reglan Injection) 10 mg IVP EDNOW ONE Stop: 10/19/16 15:22 Last Admin: 10/19/16 16:21 Dose: 10 mg Ondansetron HCl (Zofran) 4 mg IVP EDNOW ONE Stop: 10/19/16 15:22 Last Admin: 10/19/16 16:22 Dose: 4 mg Departure - Departure Disposition: Home, Routine, Self-Care Clinical Impression: Headache Condition: Good Instructions: General Headache (ED) Additional Instructions: Read and follow provided instructions. Follow-up with your primary care physician in 1-2 days for re-evaluation. Keep well hydrated. Drink plenty of fluids. Get plenty of rest. Return to the emergency department for worsening headache, neck pain, fever, numbness or weakness or other serious concerns. Referrals: Adriana Sandoval PA [Primary Care Provider] - As per Instructions
[2016-10-19 16:09] LABS: % IMMATURE GRANULYOCYTES 0.2 % (0.0-1.1); ABSOLUTE IMMATURE GRANULOCYTES 0.01 10^3/uL (0.00-0.10); ADD DIFF? NO; ADD MORPH? NO; ADD SCAN? NO; ATYPICAL LYMPHOCYTE FLAG 0 (0-99); FRAGMENT RBC FLAG 0 (0-99); HEMATOCRIT 40.5 % (38.0-47.0); HEMOGLOBIN 13.7 g/dL (12.6-16.3); LEFT SHIFT FLG 0 (0-99); LIPEMIA HEMOLYSIS FLAG 90 (0-99); MEAN CELL HEMOGLOBIN 30.2 pg (27.9-34.1); MEAN CELL HEMOGLOBIN CONCENTR. 33.8 g/dL (32.4-36.7); MEAN CELL VOLUME 89.4 fL (81.5-99.8); MEAN PLATELET VOLUME 8.8 fL (8.7-11.7); PLATELET CLUMPS FLAG 10 (0-99); PLATELET COUNT 228 10^3/uL (150-400); RED BLOOD CELL COUNT 4.53 10^6/uL (4.18-5.33); RED CELL DISTRIBUTION WIDTH 13.1 % (11.5-15.2)
[2016-10-19 16:25] LABS: ANION GAP 12 mEq/L (8-16); CALCIUM 10.7 mg/dL (8.5-10.4); CARBON DIOXIDE 21 mEq/l (22-31); CHLORIDE 104 mEq/L (97-110); CREATININE 0.8 mg/dL (0.6-1.0); GLOMERULAR FILTRATION RATE > 60; GLUCOSE 91 mg/dL (70-100); POTASSIUM 4.2 mEq/L (3.5-5.2); SODIUM 137 mEq/L (134-144)
[2016-10-19 17:38] VITALS: BP 104/65; PULSE 73; TEMP 97.5
== END 2016-10-19 17:39 | disposition home or self-care (01) ==
DX: R51 Headache (principal); F17.200 Nicotine dependence, unspecified, uncomplicated
CPT/HCPCS: 96374; J1170; J1200; J2405; J2765

== ENCOUNTER 2016-10-26 07:11 | Emergency (ER) | payer MEDICAID ==
--- NOTE | 2016-10-26 07:12 | EDPHY ---
H & P Time Seen by Provider: 10/26/16 07:11 Constitutional: Initial Vital Signs Temperature (C) 36.7 C 10/26/16 07:11 Heart Rate 96 10/26/16 07:11 Respiratory Rate 16 10/26/16 07:11 Blood Pressure 110/85 H 10/26/16 07:11 O2 Sat (%) 96 10/26/16 07:11 O2 Delivery Mode Room Air Allergies/Adverse Reactions: morphine [Morphine] Allergy (Verified 10/19/16 14:51) Itching ondansetron HCl [From Zofran] Allergy (Verified 10/19/16 14:51) shellfish derived Allergy (Verified 10/19/16 14:51) bee sting Allergy (Uncoded 08/18/16 19:35) Unknown Home Medications: Medication Instructions Recorded Levothyroxine [Synthroid 50 mcg 50 mcg PO DAILY06 05/25/16 (*)] Metoclopramide [Reglan 10 mg tab 10 mg PO BID PRN #10 tab 05/31/16 (*)] Rivaroxaban [Xarelto 10mg (*)] 20 mg PO DAILY 06/16/16 LEVETIRACETAM [Keppra 750 mg] 750 mg PO BID 08/25/16 Dexamethasone [Decadron 2 MG (*)] 2 mg PO Q12H #0 tab 09/01/16 Dexamethasone [Decadron 2 MG (*)] 2 mg PO Q24H #0 tab 09/01/16 HYDROcodone/APAP 10/325 [[place] 1 - 2 tab PO Q6HRS PRN #0 tab 09/01/16 10/325 (*)] Ambien 10/26/16 Phenergan 10/26/16 Tylenol 10/26/16 Medical Decision Making ED Course/Re-evaluation: CHIEF COMPLAINT: "I don't feel great" HISTORY OF PRESENT ILLNESS: The patient is an anticoagulated 50 y/o female arriving via EMS complaining of a anxiety and possible syncope this morning. She has an extensive medical history including Factor V Leiden Deficiency with multiple PEs and DVTs and recent right temporal craniotomy and resection for a demyelinating lesion on 08/31/16, about 7 weeks ago. She states every few weeks since the surgery she has episodic headaches, nausea, and vomiting. She was last seen here on 10/19/16 for these symptoms and had a head CT at that time that was consistent with her post-operative MRI. Her symptoms recurred on Wednesday, but she did not want to come into the ED again. This morning, she became anxious about her recurrent symptoms and began hyperventilating. She started to feel dizzy then thinks she passed out so she called 911. She continues to have a headache. She denies injury, weakness, or paresthesias. She states she has not received her biopsy results yet and has not followed up with neurology yet. REVIEW OF SYSTEMS: A 10 point review of systems was performed and is negative with the exception of the elements mentioned in the history of present illness. PHYSICAL EXAM: HR, BP, O2 Sat, RR. Temp noted General Appearance: Alert, well hydrated, appropriate, and non-toxic appearing. Head: Atraumatic without scalp tenderness or obvious injury Eyes: Pupils equal, round, reactive to light and accommodation, EOMI, no trauma , no injection. Nose: Atraumatic, no rhinorrhea, clear. Throat: Mucus membranes moist. Neck: Supple, nontender, no lymphadenopathy. Respiratory: No retractions, no distress, no wheezes, and no accessory muscle use. Lungs are clear to auscultation bilaterally. Cardiovascular: Regular rate and rhythm, no murmurs, rubs, or gallops. Good capillary refill all extremities. Gastrointestinal: Abdomen is soft, nontender, non-distended, no masses, no rebound, no guarding, no peritoneal signs. Musculoskeletal: Normal active ROM of all extremities, atraumatic. Neurological: Alert, appropriate, and interactive. Nonfocal neuro exam. Skin: No rashes, good turgor, no nodules on palpation. Past medical history: SVT, PEs, DVTs, hypothyroidism, factor V Leiden deficiency , brain lesion Past surgical history: cardiac ablation May 2016; right temporal craniotomy and microsurgical resection of right temporal brain lesion on 08/31/[address] Coombs; hysterectomy; spinal fusion C4-C6 Family history: noncontributory Social history: Nonsmoker. History of alcohol abuse, sober since 2008 Reviewed past records including surgical notes 08/31/16 and ED visit 10/19/16 as well as her head CT 10/19/16, brain MRI 08/31/16 and 09/01/16 DIFFERENTIAL DIAGNOSIS: The differential diagnosis for the patient's headache included but was not limited to subarachnoid hemorrhage, migraine headache, tension headache and infectious causes such as meningitis, pharyngitis and sinusitis. MEDICAL DECISION MAKING: This is a 50 y/o female with a recent brain surgery on 08/31/16 who presents with anxiety and episodic headaches, nausea, and vomiting since her surgery. She is neurovascularly intact. She had a recent head CT on 10/19 for the same symptoms, so we will not repeat imaging today. Plan to treat her headache and contact neurology to help arrange follow up. 1mg IV Ativan and 30mg IV Toradol administered. Patient states she has run out of her Temazepam and is requesting another script until she is able to follow up. I will right 2 weeks of 7.5mg QD Temazepam for her. 0830: Consulted with Dr. Gillespie, neurology. He will see patient in his office this week. I discussed this with the patient. She is comfortable with plan for follow up. Return precautions given. - Data Points Medications Given: Discontinued Medications Ketorolac Tromethamine (Toradol) 30 mg IVP EDNOW ONE Stop: 10/26/16 07:36 Last Admin: 10/26/16 08:07 Dose: 30 mg Lorazepam (Ativan Injection) 1 mg IVP EDNOW ONE Stop: 10/26/16 07:36 Last Admin: 10/26/16 08:07 Dose: 1 mg Departure - Departure Disposition: Home, Routine, Self-Care Clinical Impression: Anxiety Headache Qualifiers: Headache type: other headache syndrome Qualified Code(s): G44.89 - Other headache syndrome Condition: Good Instructions: Anxiety (ED), General Headache (ED) Additional Instructions: Follow up with Dr. Gillespie's office this week without fail. Return to the ED for worsening of condition. Referrals: Adriana Sandoval PA [Primary Care Provider] - As per Instructions Emeterio Gillespie DO [Doctor of Osteopathy] - As per Instructions Report Scribed for: Martir Donato Report Scribed by: Kim Ibrahim Date of Report: 10/26/16 Time of Report: 07:40
[2016-10-26 07:20] VITALS: TEMP 98.1; O2SAT 96
[2016-10-26] MEDS ORDERED: KETOROLAC 30 MG/1 ML SDV IVP ONE (07:35)
[2016-10-26] MEDS ORDERED: LORazepam 2 MG/ML INJ IVP ONE (07:35)
[2016-10-26 09:31] VITALS: BP 100/71; PULSE 82; RESP 18
== END 2016-10-26 09:33 | disposition home or self-care (01) ==
LOC: EDUNIT#
DX: F41.9 Anxiety disorder, unspecified (principal); G44.89 Other headache syndrome; Z79.01 Long term (current) use of anticoagulants
CPT/HCPCS: 96374; J1885; J2060

== ENCOUNTER 2017-04-28 12:41 | Emergency (ER) | payer MEDICAID ==
[2017-04-28 13:09] VITALS: RESP 16
[2017-04-28] MEDS ORDERED: NS 1,000 ML IV ONE ×2 (13:43)
[2017-04-28] MEDS ORDERED: PROMETHAZINE HCL 25 MG/ML INJ IVP ONE (13:44)
--- NOTE | 2017-04-28 13:45 | EDPHY ---
H & P Stated Complaint: n/v/d/fever Time Seen by Provider: 04/28/17 13:23 HPI/ROS: CHIEF COMPLAINT: Fever, myalgias, cough and vomiting HISTORY OF PRESENT ILLNESS: The patient presents the ED with 2 days of fevers, myalgias, cough and vomiting. The patient attributed her illness to influenza. She felt slightly better yesterday however is had worsening symptoms over the past day. She complains of a mild headache, a fairly severe nocturnal cough, multiple episodes of vomiting and loose stool. She has mild diffuse abdominal pain. She denies any melena or hematemesis. The patient denies any neck stiffness or acute neurologic symptoms. REVIEW OF SYSTEMS: A comprehensive 10 point review of systems is otherwise negative aside from elements mentioned in the history of present illness. Source: Patient Exam Limitations: No limitations - Personal History LMP (Females 10-55): Hysterectomy Current Tetanus/Diphtheria Vaccine: Yes Current Tetanus Diphtheria and Acellular Pertussis (TDAP): Yes Tetanus Vaccine Date: 2008 - Medical/Surgical History Hx Asthma: No Hx Chronic Respiratory Disease: No Hx Diabetes: No Hx Cardiac Disease: Yes Hx Renal Disease: No Hx Cirrhosis: No Hx Alcoholism: Yes Hx HIV/AIDS: No Hx Splenectomy or Spleen Trauma: No Other PMH: PE,DVT'S,HYPOTHYROIDISM, migraines, Hematolyic gene mutation, PTSD, etoh (sober since 2008), SVT. SURG: Hysterectomy, spinal fusion c4-6, right toe surgery, breast biopsy, tubal ligation, ablation for SVT, brain lesion, seizures, brain surgery 09/16 - Social History Smoking Status: Heavy smoker - Physical Exam Exam: General Appearance: Alert, no distress Eyes: Pupils equal and round no pallor or injection ENT, Mouth: Mucous membranes moist Respiratory: Rhonchorous breath sounds bilaterally Cardiovascular: Regular rate and rhythm Gastrointestinal: Abdomen is soft and nontender, no masses, bowel sounds normal Neurological: A&O, normal motor function, normal sensory exam, normal cranial nerves Skin: Warm and dry, no rashes Musculoskeletal: Neck is supple nontender, no meningeal symptoms Extremities: symmetrical, full range of motion Constitutional: Initial Vital Signs Temperature (C) 36.8 C 04/28/17 13:06 Heart Rate 75 04/28/17 13:06 Respiratory Rate 16 04/28/17 13:06 Blood Pressure 100/79 04/28/17 13:06 O2 Sat (%) 94 04/28/17 13:06 O2 Delivery Mode Room Air Allergies/Adverse Reactions: morphine [Morphine] Allergy (Verified 04/28/17 13:04) Itching ondansetron HCl [From Zofran] Allergy (Verified 04/28/17 13:04) shellfish derived Allergy (Verified 04/28/17 13:04) bee sting Allergy (Uncoded 04/28/17 13:04) Unknown Home Medications: Medication Instructions Recorded Levothyroxine [Synthroid 50 mcg 50 mcg PO DAILY06 05/25/16 (*)] Rivaroxaban [Xarelto 10mg (*)] 20 mg PO DAILY 06/16/16 Ambien 10/26/16 Albuterol [Ventolin Hfa Inhaler] 2 puffs IH QID PRN #1 mdi 04/28/17 Hydrocodone/APAP 5/325 [[place] 1 - 2 each PO Q6 PRN #20 tab 04/28/17 5/325] Promethazine HCl [Phenergan 25mg 25 mg PO TID PRN #20 tab 04/28/17 (*)] Medical Decision Making - Diagnostics Imaging Results: Imaging Impressions Chest X-Ray 04/28/17 13:43 Impression: No evidence for acute cardiopulmonary abnormality. ED Course/Re-evaluation: The patient presents to the ED with a viral type illness with nausea, vomiting a mild cough. The patient's vital signs are stable. She is in no acute distress. I find her abdominal examination to be benign. The patient's influenza test is negative. Her chest x-ray demonstrates no evidence of a pneumonia and her CBC and electrolytes are within normal limits. The patient did receive IV fluid rehydration and 12 mg of Phenergan. I re-evaluated the patient at 3:20 p.m. and informed her of her workup. She will be treated for a viral syndrome/bronchitis with albuterol, pain medications and antinausea medications. The patient is advised to return to the ED for markedly worsening symptoms or other concerns. Differential Diagnosis: Differential diagnosis considered includes bronchitis, pneumonia, influenza, gastroenteritis, dehydration, metabolic abnormality - Data Points Laboratory Results: Laboratory Results 04/28/17 13:20 04/28/17 13:20 04/28/17 04/28/17 04/28/17 14:08 13:20 13:20 WBC 3.04 10^3/uL L 10^3/uL (3.80-9.50) RBC 4.42 10^6/uL 10^6/uL (4.18-5.33) Hgb 13.6 g/dL g/dL (12.6-16.3) Hct 39.6 % % (38.0-47.0) MCV 89.6 fL fL (81.5-99.8) MCH 30.8 pg pg (27.9-34.1) MCHC 34.3 g/dL g/dL (32.4-36.7) RDW 13.2 % % (11.5-15.2) Plt Count 145 10^3/uL L 10^3/uL (150-400) MPV 9.4 fL fL (8.7-11.7) Neut % (Auto) 34.1 % L % (39.3-74.2) Lymph % (Auto) 55.9 % H % (15.0-45.0) [place] % (Auto) 8.6 % % (4.5-13.0) Eos % (Auto) 0.7 % % (0.6-7.6) Baso % (Auto) 0.7 % % (0.3-1.7) Nucleat RBC Rel Count 0.0 % % (0.0-0.2) Absolute Neuts (auto) 1.04 10^3/uL L 10^3/uL (1.70-6.50) Absolute Lymphs (auto) 1.70 10^3/uL 10^3/uL (1.00-3.00) Absolute Monos (auto) 0.26 10^3/uL L 10^3/uL (0.30-0.80) Absolute Eos (auto) 0.02 10^3/uL L 10^3/uL (0.03-0.40) Absolute Basos (auto) 0.02 10^3/uL 10^3/uL (0.02-0.10) Absolute Nucleated RBC 0.00 10^3/uL 10^3/uL (0-0.01) Immature Gran % 0.0 % % (0.0-1.1) Immature Gran # 0.00 10^3/uL 10^3/uL (0.00-0.10) Sodium 143 mEq/L mEq/L (134-144) Potassium 4.8 mEq/L mEq/L (3.5-5.2) Chloride 110 mEq/L mEq/L (97-110) Carbon Dioxide 22 mEq/l mEq/l (22-31) Anion Gap 11 mEq/L mEq/L (8-16) BUN 16 mg/dL mg/dL (7-23) Creatinine 0.6 mg/dL mg/dL (0.6-1.0) Estimated GFR > 60 Glucose 89 mg/dL mg/dL (70-100) Calcium 8.9 mg/dL mg/dL (8.5-10.4) Nasal Influenza A PCR NEGATIVE FOR FLU A (NEGATIVE) Nasal Influenza B PCR NEGATIVE FOR FLU B (NEGATIVE) Medications Given: Discontinued Medications Sodium Chloride (Ns) 1,000 mls @ 0 mls/hr IV ONCE ONE; Wide Open PRN Reason: Protocol Stop: 04/28/17 13:44 Last Admin: 04/28/17 14:01 Dose: 1,000 mls Promethazine HCl (Phenergan) 12.5 mg IVP EDNOW ONE Stop: 04/28/17 13:45 Last Admin: 04/28/17 14:01 Dose: 12.5 mg Departure - Departure Disposition: Home, Routine, Self-Care Clinical Impression: Bronchitis, Viral syndrome Vomiting Qualifiers: Vomiting type: unspecified Vomiting Intractability: non-intractable Nausea presence: with nausea Qualified Code(s): R11.2 - Nausea with vomiting, unspecified Condition: Good Instructions: Viral Syndrome (ED), Acute Bronchitis (ED) Additional Instructions: 1. Albuterol as needed for cough every 4 hr. 2. Phenergan as needed for nausea. 3. Take Ibuprofen or Motrin 600 mg by mouth three times a day. 4. [place] as needed for severe pain. 5. Return to the ED for markedly worsening symptoms or other concerns. 6. Follow up with your primary care provider as needed Referrals: Adriana Sandoval PA [Primary Care Provider] - As per Instructions
[2017-04-28 13:49] LABS: PLATELET COUNT 145 10^3/uL (150-400)
[2017-04-28 15:27] VITALS: PULSE 73; TEMP 97.9; O2SAT 96
[2017-04-28 15:35] VITALS: BP 98/49
== END 2017-04-28 15:40 | disposition home or self-care (01) ==
DX: B34.9 Viral infection, unspecified (principal); J40 Bronchitis, not specified as acute or chronic; E86.9 Volume depletion, unspecified; F17.200 Nicotine dependence, unspecified, uncomplicated; Z79.01 Long term (current) use of anticoagulants
CPT/HCPCS: 96374; J2550

== ENCOUNTER 2017-10-27 15:28 | Emergency (ER) | payer MEDICAID ==
--- NOTE | 2017-10-27 16:09 | CPEKG ---
Heart Rate: 69 RR Interval: 870 QRSD Interval: 118 QT Interval: 436 QTC Interval: 467 QRS [place]: 74 T Wave [place]: 38 EKG Severity - ABNORMAL ECG - EKG Impression: A-FLUTTER W/ VARIED AV BLOCK, A-RATE 268 EKG Impression: NONSPECIFIC INTRAVENTRICULAR CONDUCTION DELAY EKG Impression: LOW VOLTAGE IN FRONTAL LEADS EKG Impression: PROBABLE LEFT VENTRICULAR HYPERTROPHY Electronically Signed By: Parul Arreguin 27-Oct-2017 20:48:41
[2017-10-27] MEDS ORDERED: methylPREDNISolone SOD SUCC 125 MG/2 ML VIAL ONE (16:18)
[2017-10-27] MEDS ORDERED: IPRATROPIUM/ALBUTEROL 3 ML DEYVIAL ONE (16:18)
[2017-10-27] MEDS ORDERED: ASPIRIN 325 MG TAB ONE (16:18)
--- NOTE | 2017-10-27 16:21 | EDPHY ---
H & P Time Seen by Provider: 10/27/17 16:17 HPI/ROS: CHIEF COMPLAINT: Chest pain, shortness of breath HISTORY OF PRESENT ILLNESS: Patient is a 51-year-old female with a history of PE and factor 5 Leiden who presents to the emergency department with chest pain since last night. The patient states that she was previously on warfarin. However she had surgical procedures and was converted to Xarelto. She ran out of her Xarelto prescription for weeks ago. Since last night she has had left- sided chest pain. This feels similar to previous PE. She has had a mild nonproductive cough. No fevers or chills. No leg pain or swelling. REVIEW OF SYSTEMS: My complete review of systems is negative except as mentioned in the HPI. Past Medical/Surgical History: Includes factor 5 Leiden, pulmonary embolus, brain mass Past surgical history: Includes cardiac ablation, brain surgery Social history: Patient smokes cigarettes. She occasionally uses THC. No alcohol. Smoking Status: Current some day smoker Physical Exam: Vitals noted GENERAL: Well-appearing, in no acute distress, alert. HEENT: Eyes normal to inspection, normal pharynx, no signs of dehydration. NECK: No thyromegaly, no lymphadenopathy, supple. RESPIRATORY: Diffuse scattered wheezing. No accessory muscle use. No rales or rhonchi. CVS: Regular rate and rhythm, no rubs, murmurs, or gallops. ABDOMEN: Soft, nontender, nondistended, no organomegaly. BACK: Normal to inspection, no CVA tenderness. SKIN: Normal color, no rash, warm, dry. No pallor. EXTREMITIES: No pedal edema, no calf tenderness, no Homans sign or cords, no joint swelling. NEURO/PSYCH: Alert and oriented x3, normal mood and affect, normal motor sensory exam. Constitutional: Initial Vital Signs Temperature (C) 36.7 C 10/27/17 15:43 Heart Rate 70 10/27/17 15:43 Respiratory Rate 16 10/27/17 15:43 Blood Pressure 119/69 10/27/17 15:43 O2 Sat (%) 94 10/27/17 15:43 O2 Delivery Mode Nasal Cannula O2 (L/minute) 2 Allergies/Adverse Reactions: morphine [Morphine] Allergy (Verified 10/27/17 15:41) Itching ondansetron HCl [From Zofran] Allergy (Verified 10/27/17 15:41) shellfish derived Allergy (Verified 10/27/17 15:41) bee sting Allergy (Uncoded 04/28/17 13:04) Unknown Home Medications: Medication Instructions Recorded Levothyroxine [Synthroid 50 mcg 50 mcg PO DAILY06 05/25/16 (*)] predniSONE 20 mg PO DAILY 4 Days tab 10/27/17 Medical Decision Making - Diagnostics Imaging Results: Imaging Impressions Chest X-Ray 10/27/17 16:20 Impression: 1. Prominence of perihilar interstitial markings and peribronchial cuffing. Findings are nonspecific but can be seen with bronchitis, reactive airway disease, or viral process. 2. Hyperexpanded lungs. This can be seen with underlying air trapping, COPD, or increased inspiratory effort similar to the prior study. ED Course/Re-evaluation: In the emergency department I discussed possible etiologies with the patient. I answered all her questions. IV was placed. Laboratory studies, EKG and chest x-ray were obtained. Of note at the time of ordering the [facility] It subsequently was resolved. Patient was given aspirin 324 mg orally, Solu-Medrol 125 mg IV and a DuoNeb. Patient's CBC and chemistry unremarkable. Troponin was negative. D-dimer was negative. Chest x-ray: Increased interstitial markings. Hyperinflation. The patient's chest x-ray findings are likely consistent with COPD exacerbation. I rechecked the patient had no respiratory distress. She was lying comfortably in the bed. Patient was given warnings prior to leaving. She will return with worsening symptoms. She will take prednisone for 4 days. She has an new albuterol inhaler at home. She was instructed on use. Differential Diagnosis: My differential includes but is not limited to pulmonary embolus, ACS, acute [place] , bronchitis, pneumonia, COPD exacerbation, dissection, aneurysm, empyema - Data Points Laboratory Results: Laboratory Results 10/27/17 16:11 10/27/17 16:11 10/27/17 10/27/17 10/27/17 16:26 16:21 16:11 WBC RBC Hgb POC Hgb 13.6 gm/dL gm/dL (12.6-16.3) Hct POC Hct 40 % % (38-47) MCV MCH MCHC RDW Plt Count MPV Neut % (Auto) Lymph % (Auto) [place] % (Auto) Eos % (Auto) Baso % (Auto) Nucleat RBC Rel Count Absolute Neuts (auto) Absolute Lymphs (auto) Absolute Monos (auto) Absolute Eos (auto) Absolute Basos (auto) Absolute Nucleated RBC Immature Gran % Immature Gran # PT INR APTT D-Dimer POC Sodium 140 mEq/L mEq/L (135-145) Sodium 140 mEq/L mEq/L (135-145) POC Potassium 3.7 mEq/L mEq/L (3.3-5.0) Potassium 4.0 mEq/L mEq/L (3.3-5.0) POC Chloride 106 mEq/L mEq/L (97-110) Chloride 106 mEq/L mEq/L (97-110) Carbon Dioxide 23 mEq/l mEq/l (22-31) Anion Gap 11 mEq/L mEq/L (8-16) POC BUN 18 mg/dL mg/dL (7-23) BUN 17 mg/dL mg/dL (7-23) Creatinine 0.7 mg/dL mg/dL (0.6-1.0) POC Creatinine 0.6 mg/dL mg/dL (0.6-1.0) Estimated GFR > 60 Glucose 88 mg/dL mg/dL (70-100) POC Glucose 94 mg/dL mg/dL (70-100) Calcium 9.9 mg/dL mg/dL (8.5-10.4) POC Troponin I 0.00 ng/mL ng/mL (0.00-0.08) 10/27/17 10/27/17 16:11 16:11 WBC 6.22 10^3/uL 10^3/uL (3.80-9.50) RBC 4.29 10^6/uL 10^6/uL (4.18-5.33) Hgb 13.0 g/dL g/dL (12.6-16.3) POC Hgb Hct 38.4 % % (38.0-47.0) POC Hct MCV 89.5 fL fL (81.5-99.8) MCH 30.3 pg pg (27.9-34.1) MCHC 33.9 g/dL g/dL (32.4-36.7) RDW 13.2 % % (11.5-15.2) Plt Count 227 10^3/uL 10^3/uL (150-400) MPV 8.7 fL fL (8.7-11.7) Neut % (Auto) 62.1 % % (39.3-74.2) Lymph % (Auto) 31.4 % % (15.0-45.0) [place] % (Auto) 5.3 % % (4.5-13.0) Eos % (Auto) 0.5 % L % (0.6-7.6) Baso % (Auto) 0.5 % % (0.3-1.7) Nucleat RBC Rel Count 0.0 % % (0.0-0.2) Absolute Neuts (auto) 3.87 10^3/uL 10^3/uL (1.70-6.50) Absolute Lymphs (auto) 1.95 10^3/uL 10^3/uL (1.00-3.00) Absolute Monos (auto) 0.33 10^3/uL 10^3/uL (0.30-0.80) Absolute Eos (auto) 0.03 10^3/uL 10^3/uL (0.03-0.40) Absolute Basos (auto) 0.03 10^3/uL 10^3/uL (0.02-0.10) Absolute Nucleated RBC 0.00 10^3/uL 10^3/uL (0-0.01) Immature Gran % 0.2 % % (0.0-1.1) Immature Gran # 0.01 10^3/uL 10^3/uL (0.00-0.10) PT 13.6 SEC SEC (12.0-15.0) INR 1.02 (0.83-1.16) APTT 26.9 SEC SEC (23.0-38.0) D-Dimer 0.34 ug/mLFEU ug/mLFEU (0.00-0.50) POC Sodium Sodium POC Potassium Potassium POC Chloride Chloride Carbon Dioxide Anion Gap POC BUN BUN Creatinine POC Creatinine Estimated GFR Glucose POC Glucose Calcium POC Troponin I Medications Given: Discontinued Medications Albuterol/Ipratropium (Duoneb) 3 ml IH EDNOW ONE Stop: 10/27/17 16:28 Last Admin: 10/27/17 16:28 Dose: 3 ml Aspirin (Aspirin) 324 mg PO EDNOW ONE Stop: 10/27/17 16:27 Last Admin: 10/27/17 16:28 Dose: 324 mg Ibuprofen (Motrin) 600 mg PO EDNOW ONE Stop: 10/27/17 17:09 Last Admin: 10/27/17 17:09 Dose: 600 mg Methylprednisolone Sodium Succinate (Solu-Medrol) 125 mg IVP EDNOW ONE Stop: 10/27/17 16:27 Last Admin: 10/27/17 16:28 Dose: 125 mg Point of Care Test Results: Chemistry 10/27/17 10/27/17 16:26 16:21 POC Sodium 140 mEq/L mEq/L (135-145) POC Potassium 3.7 mEq/L mEq/L (3.3-5.0) POC Chloride 106 mEq/L mEq/L (97-110) POC BUN 18 mg/dL mg/dL (7-23) POC Creatinine 0.6 mg/dL mg/dL (0.6-1.0) POC Glucose 94 mg/dL mg/dL (70-100) POC Troponin I 0.00 ng/mL ng/mL (0.00-0.08) ISTAT H&H 10/27/17 16:21 POC Hgb 13.6 gm/dL gm/dL (12.6-16.3) POC Hct 40 % % (38-47) Departure - Departure Disposition: Home, Routine, Self-Care Clinical Impression: Chest pain Qualifiers: Chest pain type: chest pain on breathing Qualified Code(s): R07.1 - Chest pain on breathing; R07.81 - Pleurodynia COPD (chronic obstructive pulmonary disease) Qualifiers: COPD type: unspecified COPD Qualified Code(s): J44.9 - Chronic obstructive pulmonary disease, unspecified Condition: Good Instructions: COPD (Chronic Obstructive Pulmonary Disease) (ED), Chest Pain (ED ) Additional Instructions: Return with increasing shortness of breath, chest pain, fever or any other concerns. Take your entire course of prednisone. Use your inhaler as needed. Referrals: Adriana Sandoval PA [Primary Care Provider] - 5-7 days, call for appt. Prescriptions: predniSONE 20 mg PO DAILY 4 Days tab
[2017-10-27] MEDS ORDERED: methylPREDNISolone SOD SUCC 125 MG/2 ML VIAL IVP ONE (16:26)
[2017-10-27] MEDS ORDERED: ASPIRIN 81 MG CHEWABLE TAB PO ONE (16:26)
[2017-10-27] MEDS ORDERED: IPRATROPIUM/ALBUTEROL 3 ML DEYVIAL IH ONE (16:27)
[2017-10-27 16:35] LABS: PLATELET COUNT 227 10^3/uL (150-400)
[2017-10-27 16:44] LABS: INR 1.02 (0.83-1.16); PROTIME(PATIENT) 13.6 SEC (12.0-15.0)
[2017-10-27] MEDS ORDERED: IBUPROFEN 600 MG TAB PO ONE ×2 (17:07→17:08)
[2017-10-27 17:35] VITALS: BP 116/72
== END 2017-10-27 17:33 | disposition home or self-care (01) ==
DX: J44.9 Chronic obstructive pulmonary disease, unspecified (principal); F17.210 Nicotine dependence, cigarettes, uncomplicated
CPT/HCPCS: 82435-PO; 82565-PO; 82947-PO; 84132-PO; 84295-PO; 84484-PO; 84520-PO; 85014-PO; 96374; J2930

== ENCOUNTER 2017-11-30 18:51 | Emergency (ER) | payer MEDICAID ==
[2017-11-30] MEDS ORDERED: NS 1,000 ML IV ONE (19:29)
--- NOTE | 2017-11-30 19:47 | EDPHY ---
HPI/HX/ROS/PE/MDM Narrative: CHIEF COMPLAINT: Congestion, shortness of breath. HISTORY OF PRESENT ILLNESS: This patient is a 52 year old female with history of factor V Leiden deficiency and prior pulmonary embolism complaining of congestion and shortness of breath. Her congestion began about 6 weeks ago. She as used her rescue inhaler for relief as needed. She presented to the emergency department 3 weeks ago for similar symptoms and tried a course of Prednisone. In the last several days, she has felt febrile at night. She has been nauseous due to swallowing mucous and has been vomiting frequently for the past couple of days. She endorses shortness of breath and feels congestion in her chest. Her current discomfort feels different from her PE symptoms. She denies any history of asthma. She states she discontinued her prescribed anticoagulants three weeks ago due to lack of insurance coverage. She made an appointment with her primary care provider, but is unable to be seen until Wednesday, so she presents for evaluation. No chills, chest pain, palpitations, vomiting, diarrhea, urinary complaints, headache, lightheadedness. REVIEW OF SYSTEMS: Aside from elements discussed in the HPI, a comprehensive 10-point review of systems was reviewed and is negative. PAST MEDICAL HISTORY: Factor V Leiden thrombophilia, history of prior PE and DVT. History of pneumonia. Hypothyroid. SVT s/p ablation. Migraines. Hysterectomy. Spinal fusion. History of seizures, neurosurgery 08/2016. SOCIAL HISTORY: Former smoker. 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 PCP FRITZ Fisher. Does not abuse tobacco, drugs, or alcohol. VITAL SIGNS: Reviewed by me GENERAL: Well-developed, well-nourished, resting comfortably in no respiratory distress. HEENT: Atraumatic. Eyes: No icterus, no injection. Mouth: moist mucous membranes. No erythema or lesions. Neck: supple with no adenopathy. LUNGS: Diffuse end expiratory wheezes. Rales throughout, primarily in upper lobes. Wet, productive cough. CARDIAC: Regular rate and rhythm, no rubs, murmurs or gallops. ABDOMEN: Soft, nontender, nondistended, bowel sounds normal. BACK: No CVA tenderness. EXTREMITIES: No trauma. No edema. Range of motion is normal throughout. NEURO: Alert and oriented, grossly nonfocal. SKIN: Warm and dry, no rash. PSYCHIATRIC: Normal mentation, no agitation. Portions of this note were transcribed by a medical receptionist assistant. I personally performed a history, physical exam, medical decision making, and confirmed accuracy of information the transcribed note. ED Course: 52 year old female with history of factor V Leiden deficiency and prior pulmonary embolism presents with six week history of congestion and shortness of breath. Plan for CXR, labs including CBC, chemistries, D-dimer, respiratory pathogen PCR. Plan to administer DuoNeb, 125mg IV Solu-Medrol, 1L IV NS. 20:31 Reviewed chest x-ray. Negative for pneumonia. D-dimer negative. Discussed possible workup for pulmonary embolism. Patient reports that this feels very different from her PE. She has had this cough and congestion for 6 weeks. Her D-dimer is negative. Will not pursue CT scanning at this time. Patient reports difficulty obtaining her xaralto due to insurance issues but has appointment with PCP in 2 days and will resume warfarin at that time. Plan to administer 500mg PO azithromycin. Patient continues to complain of nausea. Plan to administer 12.5mg IV Phenergan for nausea relief. Reexamined: improved cough and shortness of breath post nebs. Will restart prednisone and add course of azithromycin. No pain at this point. Will FU with PCP as scheduled. MDM: Differential diagnosis for the patient's cough was considered including but not limited to viral versus bacterial bronchitis, asthma, COPD, pulmonary emboli, upper respiratory infection, lower respiratory infection, and bronchospasm. - Data Points Imaging Results: Impression: Clear lungs. No pneumonia or acute process. Dictated By: Mayur Michaels MD Imaging: I viewed and interpreted images myself Laboratory Results: Laboratory Results 11/30/17 19:37 11/30/17 19:37 Medications Given: Discontinued Medications Albuterol (Proventil Neb) 3 ml IH EDNOW ONE Stop: 11/30/17 19:51 Last Admin: 11/30/17 19:59 Dose: 3 ml Albuterol/Ipratropium (Duoneb) 3 ml IH EDNOW ONE Stop: 11/30/17 19:51 Last Admin: 11/30/17 19:59 Dose: 3 ml Azithromycin (Zithromax) 500 mg PO EDNOW ONE PRN Reason: Protocol Stop: 11/30/17 20:42 Last Admin: 11/30/17 20:54 Dose: 500 mg Sodium Chloride (Ns) 1,000 mls @ 0 mls/hr IV ONCE ONE; Wide Open PRN Reason: Protocol Stop: 11/30/17 19:30 Last Admin: 11/30/17 19:36 Dose: 1,000 mls Methylprednisolone Sodium Succinate (Solu-Medrol) 125 mg IVP EDNOW ONE Stop: 11/30/17 19:52 Last Admin: 11/30/17 19:59 Dose: 125 mg Promethazine HCl (Phenergan) 12.5 mg IVP EDNOW ONE Stop: 11/30/17 20:50 Last Admin: 11/30/17 20:54 Dose: 12.5 mg Microbiology Results: MICROBIOLOGY 11/30/17 20:00 Nasal, Sinus - Swab Respiratory Panel (PCR) - Final Human Rhinovirus/Enterovirus General Time Seen by Provider: 11/30/17 19:31 Initial Vital Signs: Initial Vital Signs Temperature (C) 36.5 C 11/30/17 19:09 Heart Rate 75 11/30/17 19:09 Respiratory Rate 18 11/30/17 19:09 Blood Pressure 128/85 H 11/30/17 19:09 O2 Sat (%) 95 11/30/17 19:09 O2 Delivery Mode Room Air Allergies/Adverse Reactions: morphine [Morphine] Allergy (Verified 11/30/17 19:13) Itching ondansetron HCl [From Zofran] Allergy (Verified 11/30/17 19:13) shellfish derived Allergy (Verified 11/30/17 19:13) bee sting Allergy (Uncoded 04/28/17 13:04) Unknown Home Medications: Medication Instructions Recorded Levothyroxine [Synthroid 50 mcg 50 mcg PO DAILY06 05/25/16 (*)] predniSONE 20 mg PO DAILY 4 Days tab 10/27/17 Ambien 11/30/17 Azithromycin [Zithromax] 250 mg PO DAILY #4 tab 11/30/17 Tizanidine HCl 11/30/17 predniSONE 40 mg PO DAILY #6 tab 11/30/17 Departure - Departure Disposition: Home, Routine, Self-Care Clinical Impression: Cough, Shortness of breath Condition: Good Instructions: Acute Cough (ED) Additional Instructions: 1. Take azithromycin as prescribed. 2. Take Prednisone as prescribed. 3. Follow up with your primary care provider on [facility] as scheduled. 4. Return to the emergency department for fever, chest pain, worsening shortness of breath, or other worsneing of condition. Referrals: Adriana Sandoval PA [Primary Care Provider] - As per Instructions Prescriptions: Azithromycin [Zithromax] 250 mg PO DAILY #4 tab predniSONE 40 mg PO DAILY #6 tab Report Scribed for: Huong Joy Report Scribed by: Margo Tomas Date of Report: 11/30/17 Time of Report: 20:51
[2017-11-30] MEDS ORDERED: IPRATROPIUM/ALBUTEROL 3 ML DEYVIAL IH ONE (19:50)
[2017-11-30] MEDS ORDERED: ALBUTEROL 3 ML DEYVIAL IH ONE (19:50)
[2017-11-30] MEDS ORDERED: methylPREDNISolone SOD SUCC 125 MG/2 ML VIAL IVP ONE (19:51)
[2017-11-30 20:10] VITALS: BP 140/87
[2017-11-30 20:15] LABS: PLATELET COUNT 301 10^3/uL (150-400)
[2017-11-30] MEDS ORDERED: AZITHROMYCIN 250 MG TAB PO ONE (20:41)
[2017-11-30] MEDS ORDERED: PROMETHAZINE HCL 25 MG/ML INJ ONE (20:46)
[2017-11-30] MEDS ORDERED: PROMETHAZINE HCL 25 MG/ML INJ IVP ONE (20:49)
== END 2017-11-30 21:34 | disposition home or self-care (01) ==
DX: R09.89 Other specified symptoms and signs involving the circulatory and respiratory systems (principal); R06.02 Shortness of breath; R11.0 Nausea; E86.9 Volume depletion, unspecified; Z86.711 Personal history of pulmonary embolism; Z87.891 Personal history of nicotine dependence
CPT/HCPCS: 96374; J2550; J2930; J7613

== ENCOUNTER 2018-09-19 17:38 | Emergency (ER) | payer BC, MEDICAID ==
[2018-09-19] MEDS ORDERED: NS 500 ML IV ONE (18:13)
--- NOTE | 2018-09-19 18:20 | EDPHY ---
H & P Stated Complaint: long fllight wednesday/hx pe taken off xarelto 2 months ago/ concerned r/t yue Time Seen by Provider: 09/19/18 17:50 HPI/ROS: CHIEF COMPLAINT: Nausea, vomiting, headache, dyspnea HISTORY OF PRESENT ILLNESS: 52-year-old female with medical history significant for factor 5 Leiden deficiency, recurrent PE DVT, has been off of her Xarelto for 2 months due to difficulty in getting refills from her pharmacy, arrives via private vehicle stating that approximately 3:00 a.m. She awoke today complaining of nausea vomiting dry heaving, diarrhea. This continued through the [employer] hours and she would then developed a non thunderclap holocephalic headache as well as dyspnea. She returned from [place] diving trip in the [place] 2 nights ago. She waited 52 hr between her last dive and her flight. PRIMARY CARE PROVIDER: Adriana Sandoval [facility] REVIEW OF SYSTEMS: 10 systems reviewed and negative with the exception of the elements mentioned in the history of present illness PAST MEDICAL & SURGICAL HISTORY: [Factor 5 Leiden, recurrent DVT/PE, glioma with surgery, hypothyroid. Migraine. Hysterectomy. Spinal fusion. Seizure. SOCIAL HISTORY:Nonsmoker PHYSICAL EXAM (Prior to examination, patient consented to physical exam, hands were washed and my usual and customary physical exam procedures followed) 1) GENERAL: Well-developed, well-nourished, alert and oriented. Appears to be in no acute distress. 2) HEAD: Normocephalic, atraumatic 3) HEENT: Pupils equal, round, reactive to light bilaterally. Sclera anicteric. Nasopharynx, oropharynx, clear, no lesions. MoistDry mucous membranes. Ears bilaterally with normal tympanic membranes. 4) NECK: Full range of motion, no meningeal signs. 5) LUNGS: Clear auscultation bilaterally, no wheezes, no rhonchi, no retractions. 6) HEART: Regular rate and rhythm, no murmur, no heave, no gallop. 7) ABDOMEN: No guarding, no rebound, no focal tenderness, negative McBurney's, negative Machado's, negative Rovsing's, negative peritoneal sign, 8) MUSCULOSKELETAL: Moving all extremities, no focal areas of tenderness, no obvious trauma. No peripheral edema or discoloration. 9) BACK: No CVA tenderness, no midline vertebral tenderness, no fluctuance, no step-off, no obvious trauma, no visual or palpable abnormality. 10) SKIN: No rash, no petechiae. 11) Psychiatric: Patient is oriented X 3, there is no agitation. 12) NEURO: Awake, alert, and oriented to person, place and time. Answers questions appropriately. There were no obvious focal neurologic abnormalities. No cerebellar dysfunction. Cranial nerves 2 through to 12 intact. Normal steady gait. Upper and lower extremities bilaterally with strength 5 / 5, reflexes 2+. DIFFERENTIAL DIAGNOSIS: In no particular order including but not to [place], PE, aortic dissection, arterial gas embolus, sinus venous thrombosis - Personal History LMP (Females 10-55): Hysterectomy Current Tetanus Diphtheria and Acellular Pertussis (TDAP): Yes Tetanus Vaccine Date: 2008 - Medical/Surgical History Hx Asthma: No Hx Chronic Respiratory Disease: No Hx Diabetes: No Hx Cardiac Disease: Yes Hx Renal Disease: No Hx Cirrhosis: No Hx Alcoholism: Yes Hx HIV/AIDS: No Hx Splenectomy or Spleen Trauma: No Other PMH: PE,DVT'S,HYPOTHYROIDISM, migraines, Hematolyic gene mutation, PTSD, etoh (sober since 2008), SVT. SURG: Hysterectomy, spinal fusion c4-6, right toe surgery, breast biopsy, tubal ligation, ablation for SVT, brain lesion, seizures, brain surgery 09/16 svt with ablation/pe - Social History Smoking Status: Current every day smoker Constitutional: Initial Vital Signs Temperature (C) 37.1 C 09/19/18 17:43 Heart Rate 88 09/19/18 17:43 Respiratory Rate 18 09/19/18 17:43 Blood Pressure 133/76 H 09/19/18 17:43 O2 Sat (%) 96 09/19/18 17:43 O2 Delivery Mode Room Air Allergies/Adverse Reactions: morphine [Morphine] Allergy (Verified 09/19/18 17:43) Itching ondansetron HCl [From Zofran] Allergy (Verified 09/19/18 17:43) shellfish derived Allergy (Verified 09/19/18 17:43) bee sting Allergy (Uncoded 04/28/17 13:04) Unknown Home Medications: Medication Instructions Recorded Levothyroxine [Synthroid 50 mcg 50 mcg PO DAILY06 05/25/16 (*)] Ambien 11/30/17 Promethazine HCl [Phenergan] 25 mg PO Q6 #10 tab 09/19/18 Medical Decision Making - Diagnostics Imaging Results: Imaging Impressions Chest/Thorax CTA 09/19/18 18:59 Impression: No evidence of pulmonary embolic disease. Results called and discussed with Anthony HU on 09/19/2018 . ADDENDUM: 09/19/182049 Impression: 1. Negative for venous sinus thrombosis. 2. See above report for additional findings. Results called and discussed with Anthony HU on 09/19/2018 at 20:46. Head CT 09/19/18 19:00 Impression: 1. CT of the head negative for hemorrhage or mass lesion. 2. Status post right temporal resection with associated encephalomalacia. Results called and discussed with Anthony HU. Head CTA 09/19/18 19:00 Impression: No evidence of pulmonary embolic disease. Results called and discussed with Anthony HU on 09/19/2018 . ADDENDUM: 09/19/182049 Impression: 1. Negative for venous sinus thrombosis. 2. See above report for additional findings. Results called and discussed with Anthony HU on 09/19/2018 at 20:46. ED Course/Re-evaluation: 6:19 p.m.: Discussed case with secondary supine position Dr. Martir Donato in the ER. This time given the patient's history of recurrent PE, DVT, factor 5 Leiden thrombophilia, currently off of anticoagulation therapy, history of recent scuba diving trip we discussed differential diagnosis which includes, but is not limited to arterial gas embolus, pulmonary embolus, venous sinus thrombosis. I have a high pretest suspicion for pulmonary embolus, recommended CT angiography of the chest. Indications risks benefits discussed with patient and she consents. 8:57 p.m.: Re-evaluation. Resting comfortably. Discussed her diagnostic results with her. Remains with a nonfocal exam. Doubt PE. Doubt venous sinus thrombosis. Plan will be discharge home. She feels comfortable being discharged. Patient feels comfortable being discharged. All questions and concerns addressed by myself. Patient given my usual and customary discharge precautions and instructions regarding their clinical impression. - Data Points Laboratory Results: Laboratory Results 09/19/18 18:40 09/19/18 18:40 09/19/18 09/19/18 09/19/18 18:51 18:48 18:40 WBC RBC Hgb POC Hgb 12.2 gm/dL L gm/dL (12.6-16.3) Hct POC Hct 36 % L % (38-47) MCV MCH MCHC RDW Plt Count MPV Neut % (Auto) Lymph % (Auto) Arroyo % (Auto) Eos % (Auto) Baso % (Auto) Nucleat RBC Rel Count Absolute Neuts (auto) Absolute Lymphs (auto) Absolute Monos (auto) Absolute Eos (auto) Absolute Basos (auto) Absolute Nucleated RBC Immature Gran % Immature Gran # POC Sodium 141 mEq/L mEq/L (135-145) Sodium 137 mEq/L mEq/L (135-145) POC Potassium 3.5 mEq/L mEq/L (3.3-5.0) Potassium 3.6 mEq/L mEq/L (3.5-5.2) POC Chloride 104 mEq/L mEq/L (97-110) Chloride 105 mEq/L mEq/L (97-110) Carbon Dioxide 23 mEq/l mEq/l (22-31) POC Total CO2 25 mEq/L mEq/L (22-31) Anion Gap 9 mEq/L mEq/L (6-14) POC BUN 13 mg/dL mg/dL (7-23) BUN 14 mg/dL mg/dL (7-23) Creatinine 0.6 mg/dL mg/dL (0.6-1.0) POC Creatinine 0.7 mg/dL mg/dL (0.6-1.0) Estimated GFR > 60 Glucose 79 mg/dL mg/dL (70-100) POC Glucose 79 mg/dL mg/dL (70-100) Calcium 9.5 mg/dL mg/dL (8.5-10.4) Total Bilirubin 0.5 mg/dL mg/dL (0.1-1.4) Conjugated Bilirubin 0.0 mg/dL mg/dL (0.0-0.5) Unconjugated Bilirubin 0.5 mg/dL mg/dL (0.0-1.1) AST 28 IU/L IU/L (14-46) ALT 45 IU/L IU/L (9-52) Alkaline Phosphatase 49 IU/L IU/L (38-126) POC Troponin I 0.00 ng/mL ng/mL (0.00-0.08) Total Protein 6.2 g/dL L g/dL (6.3-8.2) Albumin 4.2 g/dL g/dL (3.5-5.0) Lipase 119 IU/L IU/L (23-300) 09/19/18 18:40 WBC 3.82 10^3/uL 10^3/uL (3.80-9.50) RBC 4.12 10^6/uL L 10^6/uL (4.18-5.33) Hgb 12.4 g/dL L g/dL (12.6-16.3) POC Hgb Hct 36.4 % L % (38.0-47.0) POC Hct MCV 88.3 fL fL (81.5-99.8) MCH 30.1 pg pg (27.9-34.1) MCHC 34.1 g/dL g/dL (32.4-36.7) RDW 12.6 % % (11.5-15.2) Plt Count 165 10^3/uL 10^3/uL (150-400) MPV 8.9 fL fL (8.7-11.7) Neut % (Auto) 53.4 % % (39.3-74.2) Lymph % (Auto) 40.8 % % (15.0-45.0) Arroyo % (Auto) 5.0 % % (4.5-13.0) Eos % (Auto) 0.0 % L % (0.6-7.6) Baso % (Auto) 0.5 % % (0.3-1.7) Nucleat RBC Rel Count 0.0 % % (0.0-0.2) Absolute Neuts (auto) 2.04 10^3/uL 10^3/uL (1.70-6.50) Absolute Lymphs (auto) 1.56 10^3/uL 10^3/uL (1.00-3.00) Absolute Monos (auto) 0.19 10^3/uL L 10^3/uL (0.30-0.80) Absolute Eos (auto) 0.00 10^3/uL L 10^3/uL (0.03-0.40) Absolute Basos (auto) 0.02 10^3/uL 10^3/uL (0.02-0.10) Absolute Nucleated RBC 0.00 10^3/uL 10^3/uL (0-0.01) Immature Gran % 0.3 % % (0.0-1.1) Immature Gran # 0.01 10^3/uL 10^3/uL (0.00-0.10) POC Sodium Sodium POC Potassium Potassium POC Chloride Chloride Carbon Dioxide POC Total CO2 Anion Gap POC BUN BUN Creatinine POC Creatinine Estimated GFR Glucose POC Glucose Calcium Total Bilirubin Conjugated Bilirubin Unconjugated Bilirubin AST ALT Alkaline Phosphatase POC Troponin I Total Protein Albumin Lipase Medications Given: Discontinued Medications Sodium Chloride (Ns) 500 mls @ 1,000 mls/hr IV EDNOW ONE PRN Reason: Protocol Stop: 09/19/18 18:42 Last Admin: 09/19/18 18:39 Dose: 500 mls Promethazine HCl (Phenergan) 12.5 mg IVP EDNOW ONE Stop: 09/19/18 19:47 Last Admin: 09/19/18 19:52 Dose: 12.5 mg Point of Care Test Results: Chemistry 09/19/18 09/19/18 18:51 18:48 POC Sodium 141 mEq/L mEq/L (135-145) POC Potassium 3.5 mEq/L mEq/L (3.3-5.0) POC Chloride 104 mEq/L mEq/L (97-110) POC Total CO2 25 mEq/L mEq/L (22-31) POC BUN 13 mg/dL mg/dL (7-23) POC Creatinine 0.7 mg/dL mg/dL (0.6-1.0) POC Glucose 79 mg/dL mg/dL (70-100) POC Troponin I 0.00 ng/mL ng/mL (0.00-0.08) ISTAT H&H 09/19/18 18:51 POC Hgb 12.2 gm/dL L gm/dL (12.6-16.3) POC Hct 36 % L % (38-47) Departure - Departure Disposition: Home, Routine, Self-Care Clinical Impression: Nausea & vomiting Qualifiers: Vomiting type: unspecified Vomiting Intractability: non-intractable Qualified Code(s): R11.2 - Nausea with vomiting, unspecified Condition: Good Instructions: Acute Nausea and Vomiting (ED) Additional Instructions: Please follow-up with primary care provider and please continue on your anticoagulant medication as directed by her primary care provider. Do not discontinue this unless directed by your healthcare provider. Referrals: Adriana Sandoval PA [Primary Care Provider] - 1-2 days without fail Prescriptions: Promethazine HCl [Phenergan] 25 mg PO Q6 #10 tab
[2018-09-19 18:54] LABS: PLATELET COUNT 165 10^3/uL (150-400)
[2018-09-19] MEDS ORDERED: IOPAMIDOL (ISOVUE 370) 100 ML BTL IV ONE (19:20)
[2018-09-19] MEDS ORDERED: PROMETHAZINE HCL 25 MG/ML INJ IVP ONE (19:46)
[2018-09-19 20:59] VITALS: BP 120/62
== END 2018-09-19 21:32 | disposition home or self-care (01) ==
DX: R11.2 Nausea with vomiting, unspecified (principal); E86.9 Volume depletion, unspecified; E03.9 Hypothyroidism, unspecified; Z86.718 Personal history of other venous thrombosis and embolism; F17.200 Nicotine dependence, unspecified, uncomplicated
CPT/HCPCS: 82435-PO; 82565-PO; 82947-PO; 84132-PO; 84295-PO; 84484-ER; 84520-PO; 85014-ER; 96374; J2550; Q9967